=== PATIENT | female | born 1980 | race Caucasian/White ===

== ENCOUNTER 2022-02-07 12:53 | Inpatient (IN) ==
[2022-02-08] MEDS ORDERED: OXYTOCIN 30 UNITS/500 ML BAG IV PRN (09:13)
[2022-02-08] MEDS ORDERED: LIDOCAINE 1% LOCAL 20 ML VIAL INFIL PRN (09:13)
--- NOTE | 2022-02-08 09:20 | History & Physical Report ---
Date of Service February 08, 2022 Assessment & Plan (1) Elective induction of labor planned: Plan: 41 yo at 39.2 wks , here for IOL at term VSS Afebrile FHR reassuring, GBS neg Cervix favorable Plan to admit, monitor, labs, Oxytocin per protocol Epidural for pain as she desires Admission and Anticipated Discharge Date Admission Date: February 08, 2022 History of Present Illness Primary Care Provider: Jina Washington PA-C Patient is a 41 yo at 39.2 wks who was scheduled for IOL for 1) AMA 2) IVF , had preimplantation genetic testing and QNatal, both negative 3) Thalassemia minor 4) h/o Down syndrome, TOP at 16 wks No complaints, no ctxs, LOF/VB +FM Allergies Allergy/AdvReac Type Severity Reaction Status Date / Time No Known Allergies Allergy Unverified 02/08/22 08:18 Home Medications Medication Instructions Recorded Confirmed Type B12 1 tab PO DAILY 02/08/22 02/08/22 History Iron (ferrous sulfate) 1 tab PO DAILY 02/08/22 02/08/22 History Pepcid 1 tab PO DAILY 02/08/22 02/08/22 History 1 tab PO DAILY 02/08/22 02/08/22 History Patient History Medical History (Updated 02/08/22 @ 09:18 by Sarai Sanders MD) 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 [employer] History No h/o STD's, no h/o HSV/ Chlamydia/ GC Review of Systems as per Subjective / HPI Physical Exam Constitutional: well developed, well nourished and comfortable Gastrointestinal (Abdomen): normal bowel sounds, soft, nontender, no hepatosplenomegaly (Gravid, Andrzej 7-8) Genitourinary: normal external appearance OB Exam Abdomen: + vertex Manual OB Exam: + cervical dilation 3 cm, + cervical effacement 50% and + station -2 OB Exam Monitor Tracing: + external uterine monitor used and + category I Results & Data ([facility]) Vital Signs (Past 12 Hours) Vital Signs Pulse BP 02/08/22 08:05 114 H 119/74
[2022-02-08 09:59] LABS: Hematocrit (blood only) 28.5 % (34.1-44.9); Hemoglobin 9.3 g/dl (12.0-16.0); Mean Corpuscular Hemoglobin 21.6 pg (25.0-34.0); Mean Corpuscular Hgb Conc 32.6 g/dL (32.0-36.0); Mean Corpuscular Volume 66.1 fL (80.0-100.0); Mean Platelet Volume 10.7 fL (9.4-12.3); Platelet Count 321 K/uL (130-400); RDW Coefficient of Variation 15.8 % (11.5-14.5); Red Blood Count 4.31 M/uL (3.93-5.22); White Blood Count 11.36 K/ul (4.8-10.8)
[2022-02-08] MEDS: LACTATED RINGER'S 1,000 ML IV PRN ×3 (10:00→18:27)
[2022-02-08] MEDS: OXYTOCIN 30 UNITS/500 ML BAG IV PRN (10:06)
[2022-02-08] MEDS ORDERED: BUPIVACAINE 0.25% 30 ML VIAL ONE (12:36)
[2022-02-08] MEDS ORDERED: ePHEDrine sulfate 50 MG/ML AMP ONE (12:36)
[2022-02-08] MEDS ORDERED: fentaNYL citrate 100 MCG/2 ML VIAL ONE (12:36)
[2022-02-08] MEDS ORDERED: SODIUM CHLORIDE 0.9% INJ 10 ML VIAL ONE (12:36)
[2022-02-08] MEDS ORDERED: LIDOCAINE 2%/EPINEPHRINE 1:200,000 20 ML SDV ONE (12:36)
[2022-02-08] MEDS ORDERED: fentaNYL 2MCG/ML ROPIVACAINE 1.25MG/ML 100 ML BAG EPI ONE (12:38)
[2022-02-08] MEDS ORDERED: NALBUPHINE HCL INJ 10 MG/ML AMP IV PRN (13:07)
[2022-02-08] MEDS ORDERED: ONDANSETRON INJ 2 MG/ML 2 ML VIAL IV PRN (13:07)
[2022-02-08] MEDS ORDERED: NALOXONE HCL 1 MG in SODIUM CHLORIDE 0.9% 1000ML 1,000 ML IV PRN (13:07)
[2022-02-08] MEDS ORDERED: ePHEDrine sulfate 50 MG/ML AMP IV PRN (13:07)
[2022-02-08] MEDS ORDERED: diphenhydrAMINE 50 MG/ML VIAL IV PRN (13:07)
[2022-02-08] MEDS ORDERED: NALOXONE HCL 0.4 MG/1 ML VIAL/CARP IV PRN (13:07)
--- NOTE | 2022-02-08 13:07 | Anesthesiology Consultation ---
Date of Service February 08, 2022 Assessment & Plan Chart Review Chart Review: Patient NOT seen in Pre Admission Testing and Acceptable Risk for Labor Epidural Consults Requested none ASA ASA2 Proposed Anesthesia Anesthesia Type: Labor Epidural and CSE Risk / Benefits Reviewed With: PT / POA / Parent / Guardian, Accepts Plan and Informed Consent Obtained History Height/Weight Height: 5 ft 2.5 in Weight: 72.575 kg Allergies Allergy/AdvReac Type Severity Reaction Status Date / Time No Known Allergies Allergy Unverified 02/08/22 08:18 Medications Home Medications Medication Instructions Recorded Confirmed Last Taken B12 1 tab PO DAILY 02/08/22 02/08/22 Unknown Iron (ferrous sulfate) 1 tab PO DAILY 02/08/22 02/08/22 02/01/22 Pepcid 1 tab PO DAILY 02/08/22 02/08/22 02/08/22 07:30 1 tab PO DAILY 02/08/22 02/08/22 02/08/22 07:00 Active Medications Generic Name Dose Route Start Last Admin Trade Name Freq PRN Reason Stop Dose Admin Oxytocin 30 units in 500 mls @ 8 mls/hr 02/08/22 09:14 02/08/22 13:00 Pitocin IV 02/10/22 09:13 0.6 units/hr .Q24H PRN 10 mls/hr Labor Induction/Augmentation Titration Protocol 0.48 UNITS/HR NPO Date Last Intake of Fluids: 02/08/22 Time Last Intake of Fluids: 12:00 Date Last Intake of Solids: 02/08/22 Time Last Intake of Solids: 07:00 Past Medical History Medical History 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 Exercise / Class Metabolic Activity II 4-5 Yardwork/Stairs/Walk up hill Past Anesthesia History No Hx of Anesthesia Complications and No Family Hx of Anesthesia Complications History of PONV No Hx of PONV and No Hx of Motion Sickness Social History Smoking Status: Never smoker Hx Alcohol Use: No Hx Substance Use: No substance use type: does not use Review of Systems no chest pain or sob Physical Exam Vital Signs Last Vital Signs Temp 36.9 C 02/08/22 08:25 Pulse 91 H 02/08/22 12:01 Resp 18 02/08/22 08:25 BP 105/66 02/08/22 12:01 Pulse Ox 100 02/08/22 11:34 ENMT Mouth: no TMJ abnormality Thyromental Distance: > or= 3.5 Finger Breadths Mallampati Class: II Neck normal visual inspection Respiratory normal respiratory effort Auscultation: lungs clear to auscultation bilaterally Cardiovascular Rate/Rhythm: regular rate and regular rhythm Musculoskeletal Spine: normal cervical ROM Neurologic moves all extremities Psychiatric Orientation: alert and oriented x 3 Testing Laboratory Results 02/08/22 09:25
--- NOTE | 2022-02-08 16:33 | Obstetrical Progress Note ---
Date of Service February 08, 2022 Assessment & Plan Admission and Anticipated Discharge Date Admission Date: February 08, 2022 Subjective Late entry from 3:30 PM. The patient is reevaluated. She received epidural and comfortable now. Vital signs stable afebrile, heart rate category 1. Vaginal exam, cervix is 4 cm dilated, 60% effaced, head at -2 station, AROM, abundant amount of clear fluid was obtained, head is engaged. [place] showing contractions every 3 to 4 minutes, oxytocin is at 16 mIU/min. Continue to monitor closely. Results & Data ([facility]) Vital Signs (Past 12 Hours) Vital Signs Temp Pulse Resp BP Pulse Ox 02/08/22 08:25 36.9 C 114 H 18 119/74 02/08/22 16:28 100 02/08/22 16:28 80 02/08/22 16:23 100 02/08/22 16:23 82 02/08/22 16:18 100 02/08/22 16:18 84 02/08/22 16:18 82 02/08/22 16:18 110/62 02/08/22 16:13 100 02/08/22 16:13 82 02/08/22 16:08 100 02/08/22 16:08 88 02/08/22 15:45 18 02/08/22 15:45 36.8 C 18 02/08/22 16:03 100 02/08/22 16:03 93 H 02/08/22 16:02 86 02/08/22 16:02 117/68 02/08/22 15:58 100 02/08/22 15:58 94 H 02/08/22 15:53 99 02/08/22 15:53 87 02/08/22 15:49 85 02/08/22 15:49 109/67 02/08/22 15:48 100 02/08/22 15:48 87 02/08/22 15:43 99 02/08/22 15:43 96 H 02/08/22 15:38 100 02/08/22 15:38 96 H 02/08/22 15:33 100 02/08/22 15:33 102 H 02/08/22 15:33 97 H 02/08/22 15:33 112/62 02/08/22 15:28 100 02/08/22 15:28 109 H 02/08/22 15:24 91 H 02/08/22 15:24 93/55 L 02/08/22 15:23 99 02/08/22 15:23 82 02/08/22 15:19 82 02/08/22 15:19 88/56 L 02/08/22 15:18 99 02/08/22 15:18 86 02/08/22 15:13 99 02/08/22 15:13 88 02/08/22 15:08 100 02/08/22 15:08 96 H 02/08/22 15:03 100 02/08/22 15:03 92 H 02/08/22 15:02 93 H 02/08/22 15:02 111/68 02/08/22 14:58 100 02/08/22 14:58 88 02/08/22 14:53 100 02/08/22 14:53 101 H 02/08/22 14:48 99 02/08/22 14:48 94 H 02/08/22 14:47 93 H 02/08/22 14:47 102/61 02/08/22 14:43 100 02/08/22 14:43 96 H 02/08/22 14:38 100 02/08/22 14:38 98 H 02/08/22 14:33 99 02/08/22 14:33 93 H 02/08/22 14:33 93 H 02/08/22 14:33 109/63 02/08/22 14:28 99 02/08/22 14:28 95 H 02/08/22 14:23 99 02/08/22 14:23 91 H 02/08/22 14:18 100 02/08/22 14:18 96 H 02/08/22 14:18 104/66 02/08/22 14:03 16 02/08/22 14:03 16 02/08/22 14:13 99 02/08/22 14:13 91 H 02/08/22 14:08 100 02/08/22 14:08 92 H 02/08/22 14:03 100 02/08/22 14:03 90 02/08/22 14:03 112/67 02/08/22 13:58 100 02/08/22 13:58 93 H 02/08/22 13:53 99 02/08/22 13:53 92 H 02/08/22 13:50 88 02/08/22 13:50 110/71 02/08/22 13:48 99 02/08/22 13:48 89 02/08/22 13:40 36.8 C 02/08/22 13:45 16 02/08/22 13:45 16 02/08/22 13:43 100 02/08/22 13:43 94 H 02/08/22 13:38 99 02/08/22 13:38 95 H 02/08/22 13:26 18 02/08/22 13:26 36.8 C 18 02/08/22 13:33 100 02/08/22 13:33 93 H 02/08/22 13:28 99 02/08/22 13:28 89 02/08/22 13:27 210 H 02/08/22 13:27 96/55 L 02/08/22 13:23 100 02/08/22 13:23 100 H 02/08/22 13:22 91 H 02/08/22 13:22 92/53 L 02/08/22 13:18 100 02/08/22 13:18 97 H 02/08/22 13:13 100 02/08/22 13:13 103 H 02/08/22 12:01 91 H 02/08/22 12:01 105/66 02/08/22 11:34 100 02/08/22 11:34 99 H 02/08/22 10:53 100 H 02/08/22 10:53 106/70 02/08/22 09:40 96 H 02/08/22 09:40 110/67 02/08/22 08:05 114 H 119/74
--- NOTE | 2022-02-08 18:19 | Obstetrical Progress Note ---
Date of Service February 08, 2022 Assessment & Plan Admission and Anticipated Discharge Date Admission Date: February 08, 2022 Subjective The patient is reevaluated. She is comfortable. Vital signs stable afebrile, heart rate category 1. Vaginal exam, unchanged, cervix is 4 cm dilated, 60% effaced, head at -2 station, IUPC is placed, pitocin is at 20 miu/min Bed side US: Vertex, FHR 140's, EFW 3850 gr +/- 550 gr. Discussed the findings, adjust the dose of Pitocin per IUPC and change positions Continue to monitor closely Results & Data ([facility]) Vital Signs (Past 12 Hours) Vital Signs Temp Pulse Resp BP Pulse Ox 02/08/22 08:25 36.9 C 114 H 18 119/74 02/08/22 18:13 100 02/08/22 18:13 96 H 02/08/22 18:08 100 02/08/22 18:08 91 H 02/08/22 18:03 100 02/08/22 18:03 89 02/08/22 18:02 87 02/08/22 18:02 111/71 02/08/22 17:59 92 02/08/22 17:59 99 H 02/08/22 17:58 100 02/08/22 17:58 90 02/08/22 17:53 100 02/08/22 17:53 85 02/08/22 17:48 100 02/08/22 17:48 85 02/08/22 17:47 81 02/08/22 17:47 110/64 02/08/22 17:43 100 02/08/22 17:43 81 02/08/22 17:38 100 02/08/22 17:38 86 02/08/22 17:33 100 02/08/22 17:33 84 02/08/22 17:33 109/63 02/08/22 17:28 100 02/08/22 17:28 80 02/08/22 17:23 100 02/08/22 17:23 88 02/08/22 17:18 100 02/08/22 17:18 81 02/08/22 17:18 88 02/08/22 17:18 112/70 02/08/22 17:16 90 02/08/22 17:16 96 H 02/08/22 17:13 100 02/08/22 17:13 82 02/08/22 17:08 100 02/08/22 17:08 85 02/08/22 17:05 16 02/08/22 17:05 36.6 C 16 02/08/22 17:03 100 02/08/22 17:03 91 H 02/08/22 17:04 90 02/08/22 17:04 103/60 02/08/22 17:03 86 02/08/22 17:03 104/63 02/08/22 16:58 100 02/08/22 16:58 83 02/08/22 16:57 86 02/08/22 16:57 112/62 02/08/22 16:53 100 02/08/22 16:53 88 02/08/22 16:48 99 02/08/22 16:48 86 02/08/22 16:43 100 02/08/22 16:43 86 02/08/22 16:38 99 02/08/22 16:38 87 02/08/22 16:33 99 02/08/22 16:33 82 02/08/22 16:33 77 02/08/22 16:33 107/63 02/08/22 16:28 100 02/08/22 16:28 80 02/08/22 16:23 100 02/08/22 16:23 82 02/08/22 16:18 100 02/08/22 16:18 84 02/08/22 16:18 82 02/08/22 16:18 110/62 02/08/22 16:13 100 02/08/22 16:13 82 02/08/22 16:08 100 02/08/22 16:08 88 02/08/22 15:45 18 02/08/22 15:45 36.8 C 18 02/08/22 16:03 100 02/08/22 16:03 93 H 02/08/22 16:02 86 02/08/22 16:02 117/68 02/08/22 15:58 100 02/08/22 15:58 94 H 02/08/22 15:53 99 02/08/22 15:53 87 02/08/22 15:49 85 02/08/22 15:49 109/67 02/08/22 15:48 100 02/08/22 15:48 87 02/08/22 15:43 99 02/08/22 15:43 96 H 02/08/22 15:38 100 02/08/22 15:38 96 H 02/08/22 15:33 100 02/08/22 15:33 102 H 02/08/22 15:33 97 H 02/08/22 15:33 112/62 02/08/22 15:28 100 02/08/22 15:28 109 H 02/08/22 15:24 91 H 02/08/22 15:24 93/55 L 02/08/22 15:23 99 02/08/22 15:23 82 02/08/22 15:19 82 02/08/22 15:19 88/56 L 02/08/22 15:18 99 02/08/22 15:18 86 02/08/22 15:13 99 02/08/22 15:13 88 02/08/22 15:08 100 02/08/22 15:08 96 H 02/08/22 15:03 100 02/08/22 15:03 92 H 02/08/22 15:02 93 H 02/08/22 15:02 111/68 02/08/22 14:58 100 02/08/22 14:58 88 02/08/22 14:53 100 02/08/22 14:53 101 H 02/08/22 14:48 99 02/08/22 14:48 94 H 02/08/22 14:47 93 H 02/08/22 14:47 102/61 02/08/22 14:43 100 02/08/22 14:43 96 H 02/08/22 14:38 100 02/08/22 14:38 98 H 02/08/22 14:33 99 02/08/22 14:33 93 H 02/08/22 14:33 93 H 02/08/22 14:33 109/63 02/08/22 14:28 99 02/08/22 14:28 95 H 02/08/22 14:23 99 02/08/22 14:23 91 H 02/08/22 14:18 100 02/08/22 14:18 96 H 02/08/22 14:18 104/66 02/08/22 14:03 16 02/08/22 14:03 16 02/08/22 14:13 99 02/08/22 14:13 91 H 02/08/22 14:08 100 02/08/22 14:08 92 H 02/08/22 14:03 100 02/08/22 14:03 90 02/08/22 14:03 112/67 02/08/22 13:58 100 02/08/22 13:58 93 H 02/08/22 13:53 99 02/08/22 13:53 92 H 02/08/22 13:50 88 02/08/22 13:50 110/71 02/08/22 13:48 99 02/08/22 13:48 89 02/08/22 13:40 36.8 C 02/08/22 13:45 16 02/08/22 13:45 16 02/08/22 13:43 100 02/08/22 13:43 94 H 02/08/22 13:38 99 02/08/22 13:38 95 H 02/08/22 13:26 18 02/08/22 13:26 36.8 C 18 02/08/22 13:33 100 02/08/22 13:33 93 H 02/08/22 13:28 99 02/08/22 13:28 89 02/08/22 13:27 210 H 02/08/22 13:27 96/55 L 02/08/22 13:23 100 02/08/22 13:23 100 H 02/08/22 13:22 91 H 02/08/22 13:22 92/53 L 02/08/22 13:18 100 02/08/22 13:18 97 H 02/08/22 13:13 100 02/08/22 13:13 103 H 02/08/22 12:01 91 H 02/08/22 12:01 105/66 02/08/22 11:34 100 02/08/22 11:34 99 H 02/08/22 10:53 100 H 02/08/22 10:53 106/70 02/08/22 09:40 96 H 02/08/22 09:40 110/67 02/08/22 08:05 114 H 119/74
--- NOTE | 2022-02-08 22:26 | Obstetrical Progress Note ---
Date of Service February 08, 2022 Assessment & Plan Admission and Anticipated Discharge Date Admission Date: February 08, 2022 Subjective Patient is reevaluated. She started to feel contractions and has been pushing on the pain button. Vital signs stable afebrile, heart rate category 1, Pitocin has been at 30 mIU/min with IUPC in. Vaginal exam unchanged, cervix 4 cm, 70%, head at -2, coned shape Patient has been changing positions with peanut ball in between legs, flying cow girl position and high [place] position. Arrest of dilatation in active phase of labor, high presenting part suggesting CPT, recommended primary . We had long discussion with her and about the risks of trial of labor with protracted labor, intrauterine infection, uterine rupture, shoulder dystocia with risks to the . Patient understands C section is a major surgery, with risks including but not limited to bleeding , infection, injury to surrounding organs like bowels, bladder, ureters, adhesions, scarring, wound infection, blood cloths in legs/ lungs, longer recovery. All questions were answered. She wants to think about it and then decide. Results & Data ([facility]) Vital Signs (Past 12 Hours) Vital Signs Temp Pulse Resp BP Pulse Ox 02/08/22 22:18 100 02/08/22 22:18 102 H 02/08/22 22:18 124/72 02/08/22 22:13 100 02/08/22 22:13 109 H 02/08/22 22:08 99 02/08/22 22:08 109 H 02/08/22 22:03 100 02/08/22 22:03 105 H 02/08/22 22:03 124/72 02/08/22 21:58 100 02/08/22 21:58 85 02/08/22 21:53 100 02/08/22 21:53 82 02/08/22 21:48 100 02/08/22 21:48 78 02/08/22 21:47 81 02/08/22 21:47 101/59 L 02/08/22 21:43 100 02/08/22 21:43 91 H 02/08/22 21:38 99 02/08/22 21:38 90 02/08/22 21:30 18 02/08/22 21:30 18 02/08/22 21:33 100 02/08/22 21:33 87 02/08/22 21:33 89 02/08/22 21:33 120/66 02/08/22 21:28 100 02/08/22 21:28 90 02/08/22 21:00 18 02/08/22 21:00 36.4 C L 18 02/08/22 21:23 100 02/08/22 21:23 92 H 02/08/22 21:18 100 02/08/22 21:18 90 02/08/22 21:18 85 02/08/22 21:18 113/62 02/08/22 21:13 100 02/08/22 21:13 92 H 02/08/22 21:08 100 02/08/22 21:08 96 H 02/08/22 21:04 95 H 02/08/22 21:04 131/64 02/08/22 21:03 100 02/08/22 21:03 95 H 02/08/22 20:58 100 02/08/22 20:58 94 H 02/08/22 20:53 100 02/08/22 20:53 89 02/08/22 20:48 100 02/08/22 20:48 93 H 02/08/22 20:47 90 02/08/22 20:47 113/70 02/08/22 20:43 100 02/08/22 20:43 93 H 02/08/22 20:30 18 02/08/22 20:30 18 02/08/22 20:39 93 02/08/22 20:39 103 H 02/08/22 20:38 100 02/08/22 20:38 92 H 02/08/22 20:33 100 02/08/22 20:33 86 02/08/22 20:32 82 02/08/22 20:32 102/64 02/08/22 20:28 99 02/08/22 20:28 84 02/08/22 20:23 99 02/08/22 20:23 83 02/08/22 20:18 100 02/08/22 20:18 90 02/08/22 20:19 86 02/08/22 20:19 109/66 02/08/22 20:13 100 02/08/22 20:13 85 02/08/22 20:00 18 02/08/22 20:00 18 02/08/22 20:08 100 02/08/22 20:08 92 H 02/08/22 20:03 100 02/08/22 20:03 111 H 02/08/22 20:02 85 02/08/22 20:02 97/55 L 02/08/22 19:58 100 02/08/22 19:58 78 02/08/22 19:53 100 02/08/22 19:53 77 02/08/22 19:48 100 02/08/22 19:48 80 02/08/22 19:47 76 02/08/22 19:47 94/50 L 02/08/22 19:43 100 02/08/22 19:43 79 02/08/22 19:38 100 02/08/22 19:38 79 02/08/22 19:33 100 02/08/22 19:33 82 02/08/22 19:32 82 02/08/22 19:32 100/59 L 02/08/22 19:28 100 02/08/22 19:28 82 02/08/22 19:23 100 02/08/22 19:23 80 02/08/22 19:18 99 02/08/22 19:18 83 02/08/22 19:18 80 02/08/22 19:18 103/56 L 02/08/22 19:10 18 02/08/22 19:10 36.6 C 18 02/08/22 19:13 100 02/08/22 19:14 92 02/08/22 19:13 99 H 02/08/22 19:14 92 H 02/08/22 19:08 100 02/08/22 19:08 98 H 02/08/22 19:03 99 02/08/22 19:03 90 02/08/22 19:02 90 02/08/22 19:02 113/69 02/08/22 18:58 100 02/08/22 18:58 94 H 02/08/22 18:53 100 02/08/22 18:53 85 02/08/22 18:48 100 02/08/22 18:48 83 02/08/22 18:48 110/67 02/08/22 18:43 100 02/08/22 18:43 93 H 02/08/22 18:38 100 02/08/22 18:38 93 H 02/08/22 18:33 100 02/08/22 18:33 86 02/08/22 18:33 111/68 02/08/22 18:28 100 02/08/22 18:28 87 02/08/22 18:23 100 02/08/22 18:23 90 02/08/22 18:20 18 02/08/22 18:20 36.5 C 18 02/08/22 18:18 95 02/08/22 18:18 89 02/08/22 18:18 93 02/08/22 18:17 104 H 02/08/22 18:18 86 02/08/22 18:17 130/64 02/08/22 18:13 100 02/08/22 18:13 96 H 02/08/22 18:08 100 02/08/22 18:08 91 H 02/08/22 18:03 100 02/08/22 18:03 89 02/08/22 18:02 87 02/08/22 18:02 111/71 02/08/22 17:59 92 02/08/22 17:59 99 H 02/08/22 17:58 100 02/08/22 17:58 90 02/08/22 17:53 100 02/08/22 17:53 85 02/08/22 17:48 100 02/08/22 17:48 85 02/08/22 17:47 81 02/08/22 17:47 110/64 02/08/22 17:43 100 02/08/22 17:43 81 02/08/22 17:38 100 02/08/22 17:38 86 02/08/22 17:33 100 02/08/22 17:33 84 02/08/22 17:33 109/63 02/08/22 17:28 100 02/08/22 17:28 80 02/08/22 17:23 100 02/08/22 17:23 88 02/08/22 17:18 100 02/08/22 17:18 81 02/08/22 17:18 88 02/08/22 17:18 112/70 02/08/22 17:16 90 02/08/22 17:16 96 H 02/08/22 17:13 100 02/08/22 17:13 82 02/08/22 17:08 100 02/08/22 17:08 85 02/08/22 17:05 16 02/08/22 17:05 36.6 C 16 02/08/22 17:03 100 02/08/22 17:03 91 H 02/08/22 17:04 90 02/08/22 17:04 103/60 02/08/22 17:03 86 02/08/22 17:03 104/63 02/08/22 16:58 100 02/08/22 16:58 83 02/08/22 16:57 86 02/08/22 16:57 112/62 02/08/22 16:53 100 02/08/22 16:53 88 02/08/22 16:48 99 02/08/22 16:48 86 02/08/22 16:43 100 02/08/22 16:43 86 02/08/22 16:38 99 02/08/22 16:38 87 02/08/22 16:33 99 02/08/22 16:33 82 02/08/22 16:33 77 02/08/22 16:33 107/63 02/08/22 16:28 100 02/08/22 16:28 80 02/08/22 16:23 100 02/08/22 16:23 82 02/08/22 16:18 100 02/08/22 16:18 84 02/08/22 16:18 82 02/08/22 16:18 110/62 02/08/22 16:13 100 02/08/22 16:13 82 02/08/22 16:08 100 02/08/22 16:08 88 02/08/22 15:45 18 02/08/22 15:45 36.8 C 18 02/08/22 16:03 100 02/08/22 16:03 93 H 02/08/22 16:02 86 02/08/22 16:02 117/68 02/08/22 15:58 100 02/08/22 15:58 94 H 02/08/22 15:53 99 02/08/22 15:53 87 02/08/22 15:49 85 02/08/22 15:49 109/67 02/08/22 15:48 100 02/08/22 15:48 87 02/08/22 15:43 99 02/08/22 15:43 96 H 02/08/22 15:38 100 02/08/22 15:38 96 H 02/08/22 15:33 100 02/08/22 15:33 102 H 02/08/22 15:33 97 H 02/08/22 15:33 112/62 02/08/22 15:28 100 02/08/22 15:28 109 H 02/08/22 15:24 91 H 02/08/22 15:24 93/55 L 02/08/22 15:23 99 02/08/22 15:23 82 02/08/22 15:19 82 02/08/22 15:19 88/56 L 02/08/22 15:18 99 02/08/22 15:18 86 02/08/22 15:13 99 02/08/22 15:13 88 02/08/22 15:08 100 02/08/22 15:08 96 H 02/08/22 15:03 100 02/08/22 15:03 92 H 02/08/22 15:02 93 H 02/08/22 15:02 111/68 02/08/22 14:58 100 02/08/22 14:58 88 02/08/22 14:53 100 02/08/22 14:53 101 H 02/08/22 14:48 99 02/08/22 14:48 94 H 02/08/22 14:47 93 H 02/08/22 14:47 102/61 02/08/22 14:43 100 02/08/22 14:43 96 H 02/08/22 14:38 100 02/08/22 14:38 98 H 02/08/22 14:33 99 02/08/22 14:33 93 H 02/08/22 14:33 93 H 02/08/22 14:33 109/63 02/08/22 14:28 99 02/08/22 14:28 95 H 02/08/22 14:23 99 02/08/22 14:23 91 H 02/08/22 14:18 100 02/08/22 14:18 96 H 02/08/22 14:18 104/66 02/08/22 14:03 16 02/08/22 14:03 16 02/08/22 14:13 99 02/08/22 14:13 91 H 02/08/22 14:08 100 02/08/22 14:08 92 H 02/08/22 14:03 100 02/08/22 14:03 90 02/08/22 14:03 112/67 02/08/22 13:58 100 02/08/22 13:58 93 H 02/08/22 13:53 99 02/08/22 13:53 92 H 02/08/22 13:50 88 02/08/22 13:50 110/71 02/08/22 13:48 99 02/08/22 13:48 89 02/08/22 13:40 36.8 C 02/08/22 13:45 16 02/08/22 13:45 16 02/08/22 13:43 100 02/08/22 13:43 94 H 02/08/22 13:38 99 02/08/22 13:38 95 H 02/08/22 13:26 18 02/08/22 13:26 36.8 C 18 02/08/22 13:33 100 02/08/22 13:33 93 H 02/08/22 13:28 99 02/08/22 13:28 89 02/08/22 13:27 210 H 02/08/22 13:27 96/55 L 02/08/22 13:23 100 02/08/22 13:23 100 H 02/08/22 13:22 91 H 02/08/22 13:22 92/53 L 02/08/22 13:18 100 02/08/22 13:18 97 H 02/08/22 13:13 100 02/08/22 13:13 103 H 02/08/22 12:01 91 H 02/08/22 12:01 105/66 02/08/22 11:34 100 02/08/22 11:34 99 H 02/08/22 10:53 100 H 02/08/22 10:53 106/70
[2022-02-08] MEDS: fentaNYL 2MCG/ML ROPIVACAINE 1.25MG/ML 100 ML BAG EPI PRN (22:27)
[2022-02-09] MEDS: LACTATED RINGER'S 1,000 ML IV PRN ×4 (00:08→19:25)
--- NOTE | 2022-02-09 00:12 | Obstetrical Progress Note ---
Date of Service February 09, 2022 Assessment & Plan Admission and Anticipated Discharge Date Admission Date: February 08, 2022 Subjective Patient is reevaluated. She decided not to have Csection and continue for Trial of labor. She desired to sleep. She is comfortable and has no complaints. Pitocin was stopped for an hour and restarted at 2 miu/min VSS Afebrile FHR categ I Continue to monitor closely, increase pitocin as needed, Results & Data ([facility]) Vital Signs (Past 12 Hours) Vital Signs Temp Pulse Resp BP Pulse Ox 02/09/22 00:08 100 H 99 02/09/22 00:03 99 02/09/22 00:03 86 02/09/22 00:03 85 108/62 02/08/22 23:58 99 02/08/22 23:58 88 02/08/22 23:53 99 02/08/22 23:53 86 02/08/22 23:30 18 02/08/22 23:30 18 02/08/22 23:48 100 02/08/22 23:48 89 02/08/22 23:48 116/60 02/08/22 23:43 100 02/08/22 23:43 93 H 02/08/22 23:38 100 02/08/22 23:38 98 H 02/08/22 23:33 100 02/08/22 23:33 99 H 02/08/22 23:32 85 02/08/22 23:32 108/62 02/08/22 23:28 100 02/08/22 23:28 89 02/08/22 23:23 100 02/08/22 23:23 94 H 02/08/22 23:18 100 02/08/22 23:18 112 H 02/08/22 23:18 96 H 02/08/22 23:18 115/63 02/08/22 23:13 100 02/08/22 23:13 91 H 02/08/22 23:00 18 02/08/22 23:00 36.6 C 18 02/08/22 23:08 100 02/08/22 23:08 99 H 02/08/22 23:03 100 02/08/22 23:03 89 02/08/22 23:02 90 02/08/22 23:02 117/56 L 11/29/22 22:30 18 02/08/22 22:30 18 02/08/22 22:58 100 02/08/22 22:58 91 H 02/08/22 22:53 100 02/08/22 22:53 86 02/08/22 22:49 90 02/08/22 22:49 103/58 L 02/08/22 22:48 100 02/08/22 22:48 90 02/08/22 22:43 97 02/08/22 22:43 88 02/08/22 22:00 18 02/08/22 22:00 18 02/08/22 22:38 100 02/08/22 22:38 91 H 02/08/22 22:33 100 02/08/22 22:33 94 H 02/08/22 22:33 90 02/08/22 22:33 119/62 02/08/22 22:28 99 02/08/22 22:28 98 H 02/08/22 22:23 100 02/08/22 22:23 104 H 02/08/22 22:18 100 02/08/22 22:18 102 H 02/08/22 22:18 124/72 02/08/22 22:13 100 02/08/22 22:13 109 H 02/08/22 22:08 99 02/08/22 22:08 109 H 02/08/22 22:03 100 02/08/22 22:03 105 H 02/08/22 22:03 124/72 02/08/22 21:58 100 02/08/22 21:58 85 02/08/22 21:53 100 02/08/22 21:53 82 02/08/22 21:48 100 02/08/22 21:48 78 02/08/22 21:47 81 02/08/22 21:47 101/59 L 02/08/22 21:43 100 02/08/22 21:43 91 H 02/08/22 21:38 99 02/08/22 21:38 90 02/08/22 21:30 18 02/08/22 21:30 18 02/08/22 21:33 100 02/08/22 21:33 87 02/08/22 21:33 89 02/08/22 21:33 120/66 02/08/22 21:28 100 02/08/22 21:28 90 02/08/22 21:00 18 02/08/22 21:00 36.4 C L 18 02/08/22 21:23 100 02/08/22 21:23 92 H 02/08/22 21:18 100 02/08/22 21:18 90 02/08/22 21:18 85 02/08/22 21:18 113/62 02/08/22 21:13 100 02/08/22 21:13 92 H 02/08/22 21:08 100 02/08/22 21:08 96 H 02/08/22 21:04 95 H 02/08/22 21:04 131/64 02/08/22 21:03 100 02/08/22 21:03 95 H 02/08/22 20:58 100 02/08/22 20:58 94 H 02/08/22 20:53 100 02/08/22 20:53 89 02/08/22 20:48 100 02/08/22 20:48 93 H 02/08/22 20:47 90 02/08/22 20:47 113/70 02/08/22 20:43 100 02/08/22 20:43 93 H 02/08/22 20:30 18 02/08/22 20:30 18 02/08/22 20:39 93 02/08/22 20:39 103 H 02/08/22 20:38 100 02/08/22 20:38 92 H 02/08/22 20:33 100 02/08/22 20:33 86 02/08/22 20:32 82 02/08/22 20:32 102/64 02/08/22 20:28 99 02/08/22 20:28 84 02/08/22 20:23 99 02/08/22 20:23 83 02/08/22 20:18 100 02/08/22 20:18 90 02/08/22 20:19 86 02/08/22 20:19 109/66 02/08/22 20:13 100 02/08/22 20:13 85 02/08/22 20:00 18 02/08/22 20:00 18 02/08/22 20:08 100 02/08/22 20:08 92 H 02/08/22 20:03 100 02/08/22 20:03 111 H 02/08/22 20:02 85 02/08/22 20:02 97/55 L 02/08/22 19:58 100 02/08/22 19:58 78 02/08/22 19:53 100 02/08/22 19:53 77 02/08/22 19:48 100 02/08/22 19:48 80 02/08/22 19:47 76 02/08/22 19:47 94/50 L 02/08/22 19:43 100 02/08/22 19:43 79 02/08/22 19:38 100 02/08/22 19:38 79 02/08/22 19:33 100 02/08/22 19:33 82 02/08/22 19:32 82 02/08/22 19:32 100/59 L 02/08/22 19:28 100 02/08/22 19:28 82 02/08/22 19:23 100 02/08/22 19:23 80 02/08/22 19:18 99 02/08/22 19:18 83 02/08/22 19:18 80 02/08/22 19:18 103/56 L 02/08/22 19:10 18 02/08/22 19:10 36.6 C 18 02/08/22 19:13 100 02/08/22 19:14 92 02/08/22 19:13 99 H 02/08/22 19:14 92 H 02/08/22 19:08 100 02/08/22 19:08 98 H 02/08/22 19:03 99 02/08/22 19:03 90 02/08/22 19:02 90 02/08/22 19:02 113/69 02/08/22 18:58 100 02/08/22 18:58 94 H 02/08/22 18:53 100 02/08/22 18:53 85 02/08/22 18:48 100 02/08/22 18:48 83 02/08/22 18:48 110/67 02/08/22 18:43 100 02/08/22 18:43 93 H 02/08/22 18:38 100 02/08/22 18:38 93 H 02/08/22 18:33 100 02/08/22 18:33 86 02/08/22 18:33 111/68 02/08/22 18:28 100 02/08/22 18:28 87 02/08/22 18:23 100 02/08/22 18:23 90 02/08/22 18:20 18 02/08/22 18:20 36.5 C 18 02/08/22 18:18 95 02/08/22 18:18 89 02/08/22 18:18 93 02/08/22 18:17 104 H 02/08/22 18:18 86 02/08/22 18:17 130/64 02/08/22 18:13 100 02/08/22 18:13 96 H 02/08/22 18:08 100 02/08/22 18:08 91 H 02/08/22 18:03 100 02/08/22 18:03 89 02/08/22 18:02 87 02/08/22 18:02 111/71 02/08/22 17:59 92 02/08/22 17:59 99 H 02/08/22 17:58 100 02/08/22 17:58 90 02/08/22 17:53 100 02/08/22 17:53 85 02/08/22 17:48 100 02/08/22 17:48 85 02/08/22 17:47 81 02/08/22 17:47 110/64 02/08/22 17:43 100 02/08/22 17:43 81 02/08/22 17:38 100 02/08/22 17:38 86 02/08/22 17:33 100 02/08/22 17:33 84 02/08/22 17:33 109/63 02/08/22 17:28 100 02/08/22 17:28 80 02/08/22 17:23 100 02/08/22 17:23 88 02/08/22 17:18 100 02/08/22 17:18 81 02/08/22 17:18 88 02/08/22 17:18 112/70 02/08/22 17:16 90 02/08/22 17:16 96 H 02/08/22 17:13 100 02/08/22 17:13 82 02/08/22 17:08 100 02/08/22 17:08 85 02/08/22 17:05 16 02/08/22 17:05 36.6 C 16 02/08/22 17:03 100 02/08/22 17:03 91 H 02/08/22 17:04 90 02/08/22 17:04 103/60 02/08/22 17:03 86 02/08/22 17:03 104/63 02/08/22 16:58 100 02/08/22 16:58 83 02/08/22 16:57 86 02/08/22 16:57 112/62 02/08/22 16:53 100 02/08/22 16:53 88 02/08/22 16:48 99 02/08/22 16:48 86 02/08/22 16:43 100 02/08/22 16:43 86 02/08/22 16:38 99 02/08/22 16:38 87 02/08/22 16:33 99 02/08/22 16:33 82 02/08/22 16:33 77 02/08/22 16:33 107/63 02/08/22 16:28 100 02/08/22 16:28 80 02/08/22 16:23 100 02/08/22 16:23 82 02/08/22 16:18 100 02/08/22 16:18 84 02/08/22 16:18 82 02/08/22 16:18 110/62 02/08/22 16:13 100 02/08/22 16:13 82 02/08/22 16:08 100 02/08/22 16:08 88 02/08/22 15:45 18 02/08/22 15:45 36.8 C 18 02/08/22 16:03 100 02/08/22 16:03 93 H 02/08/22 16:02 86 02/08/22 16:02 117/68 02/08/22 15:58 100 02/08/22 15:58 94 H 02/08/22 15:53 99 02/08/22 15:53 87 02/08/22 15:49 85 02/08/22 15:49 109/67 02/08/22 15:48 100 02/08/22 15:48 87 02/08/22 15:43 99 02/08/22 15:43 96 H 02/08/22 15:38 100 02/08/22 15:38 96 H 02/08/22 15:33 100 02/08/22 15:33 102 H 02/08/22 15:33 97 H 02/08/22 15:33 112/62 02/08/22 15:28 100 02/08/22 15:28 109 H 02/08/22 15:24 91 H 02/08/22 15:24 93/55 L 02/08/22 15:23 99 02/08/22 15:23 82 02/08/22 15:19 82 02/08/22 15:19 88/56 L 02/08/22 15:18 99 02/08/22 15:18 86 02/08/22 15:13 99 02/08/22 15:13 88 02/08/22 15:08 100 02/08/22 15:08 96 H 02/08/22 15:03 100 02/08/22 15:03 92 H 02/08/22 15:02 93 H 02/08/22 15:02 111/68 02/08/22 14:58 100 02/08/22 14:58 88 02/08/22 14:53 100 02/08/22 14:53 101 H 02/08/22 14:48 99 02/08/22 14:48 94 H 02/08/22 14:47 93 H 02/08/22 14:47 102/61 02/08/22 14:43 100 02/08/22 14:43 96 H 02/08/22 14:38 100 02/08/22 14:38 98 H 02/08/22 14:33 99 02/08/22 14:33 93 H 02/08/22 14:33 93 H 02/08/22 14:33 109/63 02/08/22 14:28 99 02/08/22 14:28 95 H 02/08/22 14:23 99 02/08/22 14:23 91 H 02/08/22 14:18 100 02/08/22 14:18 96 H 02/08/22 14:18 104/66 02/08/22 14:03 16 02/08/22 14:03 16 02/08/22 14:13 99 02/08/22 14:13 91 H 02/08/22 14:08 100 02/08/22 14:08 92 H 02/08/22 14:03 100 02/08/22 14:03 90 02/08/22 14:03 112/67 02/08/22 13:58 100 02/08/22 13:58 93 H 02/08/22 13:53 99 02/08/22 13:53 92 H 02/08/22 13:50 88 02/08/22 13:50 110/71 02/08/22 13:48 99 02/08/22 13:48 89 02/08/22 13:40 36.8 C 02/08/22 13:45 16 02/08/22 13:45 16 02/08/22 13:43 100 02/08/22 13:43 94 H 02/08/22 13:38 99 02/08/22 13:38 95 H 02/08/22 13:26 18 02/08/22 13:26 36.8 C 18 02/08/22 13:33 100 02/08/22 13:33 93 H 02/08/22 13:28 99 02/08/22 13:28 89 02/08/22 13:27 210 H 02/08/22 13:27 96/55 L 02/08/22 13:23 100 02/08/22 13:23 100 H 02/08/22 13:22 91 H 02/08/22 13:22 92/53 L 02/08/22 13:18 100 02/08/22 13:18 97 H 02/08/22 13:13 100 02/08/22 13:13 103 H
[2022-02-09] MEDS ORDERED: NURSING L&D Epidural Breakthrough Pain Update ONE ×2 (03:40→05:43)
[2022-02-09] MEDS: fentaNYL 2MCG/ML ROPIVACAINE 1.25MG/ML 100 ML BAG EPI PRN ×2 (05:40→12:02)
[2022-02-09] MEDS ORDERED: CITRIC ACID/SODIUM CITRATE 15 ML UDC PO SCH (06:00)
[2022-02-09] MEDS ORDERED: ceFAZolin 2000MG 2,000 MG/15 ML SYR IV SCH (06:00)
[2022-02-09] MEDS ORDERED: BUPIVACAINE 0.25% 30 ML VIAL ONE (07:00)
[2022-02-09] MEDS ORDERED: SODIUM CHLORIDE 0.9% INJ 10 ML VIAL ONE (07:00)
[2022-02-09] MEDS ORDERED: SODIUM CHLORIDE 0.9% 250 ML IV PRN (08:28)
[2022-02-09] MEDS ORDERED: OXYTOCIN 30 UNITS/500 ML BAG IV PRN (09:37)
--- NOTE | 2022-02-09 09:37 | Labor Progress Brief Note ---
Date of Service February 09, 2022 Assessment & Plan Admission and Anticipated Discharge Date Admission Date: February 08, 2022 Physical Exam Genitourinary: Manual OB Exam: + cervical dilation 6 cm, + cervical effacement 100% and + station + 1 OB Exam Monitor Tracing: + external FHT monitor used, + external uterine monitor used, + category I and + normal FHT variability Results & Data ([facility]) Vital Signs (Past 12 Hours) Vital Signs Temp Pulse Resp BP Pulse Ox 02/09/22 09:33 103 H 100 02/09/22 09:31 37.0 C 125 H 17 113/65 02/09/22 09:28 88 100 02/09/22 09:23 90 100 02/09/22 09:18 100 02/09/22 09:18 86 02/09/22 09:18 93 H 111/63 02/09/22 09:13 95 H 100 02/09/22 09:08 90 100 02/09/22 09:03 84 100 02/09/22 09:02 95 H 119/73 02/09/22 08:58 86 100 02/09/22 08:57 82 105/65 02/09/22 08:53 114 H 100 02/09/22 08:48 112 H 100 02/09/22 08:47 101 H 109/68 02/09/22 08:43 102 H 100 02/09/22 08:38 95 H 100 02/09/22 08:33 109 H 100 02/09/22 08:32 103 H 117/75 02/09/22 08:28 96 H 100 02/09/22 08:23 92 H 100 02/09/22 08:18 100 02/09/22 08:18 106 H 02/09/22 08:18 100 H 117/57 L 02/09/22 08:13 107 H 100 02/09/22 08:08 95 H 100 02/09/22 08:03 95 H 100 02/09/22 08:02 88 110/68 02/09/22 07:58 90 100 02/09/22 07:53 103 H 100 02/09/22 07:48 116 H 100 02/09/22 07:45 106 H 98/55 L 02/09/22 07:43 99 H 100 02/09/22 07:40 100 H 97/52 L 02/09/22 07:38 91 H 100 02/09/22 07:36 88 95/54 L 02/09/22 07:33 87 100 02/09/22 07:31 95 H 98/56 L 02/09/22 07:28 97 H 100 02/09/22 07:26 90 90 02/09/22 07:25 104 H 91/50 L 02/09/22 07:23 99 H 100 02/09/22 07:21 105 H 101/53 L 02/09/22 07:18 95 H 100 02/09/22 07:15 107 H 100/57 L 02/09/22 07:13 97 H 93 02/09/22 07:11 94 H 108/57 L 02/09/22 07:08 113 H 100 02/09/22 07:00 18 02/09/22 07:00 18 02/09/22 07:03 98 H 112/63 100 02/09/22 06:58 107 H 100 02/09/22 06:53 84 100 02/09/22 06:48 80 100 02/09/22 06:47 80 95/52 L 02/09/22 06:43 81 100 02/09/22 06:38 85 100 02/09/22 06:33 100 02/09/22 06:33 88 02/09/22 06:33 91 H 93/54 L 02/09/22 06:30 20 02/09/22 06:30 20 02/09/22 06:28 98 H 100 02/09/22 06:23 95 H 100 02/09/22 06:18 102 H 100 02/09/22 06:17 100 H 104/65 02/09/22 06:13 98 H 100 02/09/22 06:08 91 H 100 02/09/22 06:00 20 02/09/22 06:00 20 02/09/22 06:03 96 H 100 02/09/22 06:02 92 H 111/68 02/09/22 05:58 90 100 02/09/22 05:53 100 H 100 02/09/22 05:30 20 02/09/22 05:30 20 02/09/22 05:48 97 H 100 02/09/22 05:43 103 H 100 02/09/22 05:38 92 H 100 02/09/22 05:33 108 H 100 02/09/22 05:28 87 100 02/09/22 05:23 105 H 100 02/09/22 05:18 99 H 100 02/09/22 05:17 96 H 103/68 02/09/22 05:13 91 H 99 02/09/22 05:07 36.7 C 02/09/22 05:08 84 100 02/09/22 05:03 99 02/09/22 05:03 88 02/09/22 05:03 85 103/65 02/09/22 05:00 16 02/09/22 05:00 16 02/09/22 04:58 91 H 99 02/09/22 04:53 89 98 02/09/22 04:48 89 98 02/09/22 04:47 87 109/62 02/09/22 04:43 90 99 02/09/22 04:38 89 98 02/09/22 04:33 93 H 99 02/09/22 04:32 90 102/60 02/09/22 04:30 16 02/09/22 04:30 16 02/09/22 04:28 85 98 02/09/22 04:23 80 99 02/09/22 04:18 92 H 97 02/09/22 04:17 78 101/60 02/09/22 04:13 91 H 97 02/09/22 04:08 80 97 02/09/22 04:03 85 100/60 100 02/09/22 03:58 86 99 02/09/22 03:53 85 99 02/09/22 03:48 99 02/09/22 03:48 84 02/09/22 03:48 85 111/63 02/09/22 03:43 93 H 99 02/09/22 03:38 93 H 99 02/09/22 03:26 18 02/09/22 03:26 36.6 C 18 02/09/22 03:33 97 H 114/65 100 02/09/22 03:28 106 H 100 02/09/22 03:23 105 H 100 02/09/22 03:00 16 02/09/22 03:00 16 02/09/22 03:18 113 H 100 02/09/22 03:17 106 H 88/54 L 02/09/22 03:13 106 H 100 02/09/22 03:08 82 100 02/09/22 03:03 87 100 02/09/22 03:02 82 90/52 L 02/09/22 02:58 82 99 02/09/22 02:53 80 100 02/09/22 02:48 99 02/09/22 02:48 80 02/09/22 02:48 76 86/51 L 02/09/22 02:43 83 99 02/09/22 02:38 75 98 02/09/22 02:33 78 88/52 L 99 02/09/22 02:30 16 02/09/22 02:30 16 02/09/22 02:28 73 99 02/09/22 02:23 78 99 02/09/22 02:18 78 87/51 L 99 02/09/22 02:13 78 99 02/09/22 02:08 81 99 02/09/22 02:00 16 02/09/22 02:00 16 02/09/22 02:03 78 100 02/09/22 02:02 86 95/53 L 02/09/22 01:58 82 99 02/09/22 01:53 83 100 02/09/22 01:48 88 99 02/09/22 01:47 80 94/50 L 02/09/22 01:43 83 99 02/09/22 01:38 81 100 02/09/22 01:33 93 H 106/52 L 99 02/09/22 01:30 16 02/09/22 01:30 16 02/09/22 01:28 82 98 02/09/22 01:23 88 98 02/09/22 01:18 99 02/09/22 01:18 86 02/09/22 01:18 81 100/65 02/09/22 01:13 90 98 02/09/22 01:10 36.8 C 02/09/22 01:08 84 99 02/09/22 01:00 18 02/09/22 01:00 18 02/09/22 01:03 86 99 02/09/22 01:02 85 103/58 L 02/09/22 00:58 91 H 98 02/09/22 00:53 87 98 02/09/22 00:48 86 98 02/09/22 00:49 82 99/59 L 02/09/22 00:43 83 98 02/09/22 00:38 86 98 02/09/22 00:30 18 02/09/22 00:30 18 02/09/22 00:33 87 98 02/09/22 00:32 85 109/57 L 02/09/22 00:28 86 98 02/09/22 00:23 91 H 99 02/09/22 00:18 85 98 02/09/22 00:17 93 H 116/65 02/09/22 00:13 86 99 02/09/22 00:00 18 02/09/22 00:00 18 02/09/22 00:08 100 H 99 02/09/22 00:03 99 02/09/22 00:03 86 02/09/22 00:03 85 108/62 02/08/22 23:58 99 02/08/22 23:58 88 02/08/22 23:53 99 02/08/22 23:53 86 02/08/22 23:30 18 02/08/22 23:30 18 02/08/22 23:48 100 02/08/22 23:48 89 02/08/22 23:48 116/60 02/08/22 23:43 100 02/08/22 23:43 93 H 02/08/22 23:38 100 02/08/22 23:38 98 H 02/08/22 23:33 100 02/08/22 23:33 99 H 02/08/22 23:32 85 02/08/22 23:32 108/62 02/08/22 23:28 100 02/08/22 23:28 89 02/08/22 23:23 100 02/08/22 23:23 94 H 02/08/22 23:18 100 02/08/22 23:18 112 H 02/08/22 23:18 96 H 02/08/22 23:18 115/63 02/08/22 23:13 100 02/08/22 23:13 91 H 02/08/22 23:00 18 02/08/22 23:00 36.6 C 18 02/08/22 23:08 100 02/08/22 23:08 99 H 02/08/22 23:03 100 02/08/22 23:03 89 02/08/22 23:02 90 02/08/22 23:02 117/56 L 02/08/22 22:30 18 02/08/22 22:30 18 02/08/22 22:58 100 02/08/22 22:58 91 H 02/08/22 22:53 100 02/08/22 22:53 86 02/08/22 22:49 90 02/08/22 22:49 103/58 L 02/08/22 22:48 100 02/08/22 22:48 90 02/08/22 22:43 97 02/08/22 22:43 88 02/08/22 22:00 18 02/08/22 22:00 18 02/08/22 22:38 100 02/08/22 22:38 91 H 02/08/22 22:33 100 02/08/22 22:33 94 H 02/08/22 22:33 90 02/08/22 22:33 119/62 02/08/22 22:28 99 02/08/22 22:28 98 H 02/08/22 22:23 100 02/08/22 22:23 104 H 02/08/22 22:18 100 02/08/22 22:18 102 H 02/08/22 22:18 124/72 02/08/22 22:13 100 02/08/22 22:13 109 H 02/08/22 22:08 99 02/08/22 22:08 109 H 02/08/22 22:03 100 02/08/22 22:03 105 H 02/08/22 22:03 124/72 02/08/22 21:58 100 02/08/22 21:58 85 02/08/22 21:53 100 02/08/22 21:53 82 02/08/22 21:48 100 02/08/22 21:48 78 02/08/22 21:47 81 02/08/22 21:47 101/59 L 02/08/22 21:43 100 02/08/22 21:43 91 H 02/08/22 21:38 99 02/08/22 21:38 90
--- NOTE | 2022-02-09 11:54 | Labor Progress Brief Note ---
Date of Service February 09, 2022 Assessment & Plan Admission and Anticipated Discharge Date Admission Date: February 08, 2022 Physical Exam Genitourinary: Manual OB Exam: + cervical dilation 8 cm, + cervical effacement 100% and + station + 1 OB Exam Monitor Tracing: + external FHT monitor used, + external uterine monitor used, + category I and + normal FHT variability Results & Data ([facility]) Vital Signs (Past 12 Hours) Vital Signs Temp Pulse Resp BP Pulse Ox 02/09/22 11:48 100 02/09/22 11:48 92 H 02/09/22 11:48 85 97/59 L 02/09/22 11:43 91 H 100 02/09/22 11:38 99 H 100 02/09/22 11:33 101 H 100 02/09/22 11:31 89 105/60 02/09/22 11:28 93 H 99 02/09/22 11:23 105 H 100 02/09/22 11:18 81 100 02/09/22 11:17 94 H 109/66 02/09/22 11:13 94 H 100 02/09/22 11:08 94 H 100 02/09/22 11:03 81 100 02/09/22 11:02 90 111/60 02/09/22 10:58 95 H 100 02/09/22 10:53 96 H 98 02/09/22 10:48 97 H 100 02/09/22 10:47 101 H 91/53 L 02/09/22 10:43 92 H 100 02/09/22 10:38 88 100 02/09/22 10:33 84 99 02/09/22 10:31 78 87/49 L 02/09/22 10:28 83 99 02/09/22 10:23 87 98 02/09/22 10:18 83 100 02/09/22 10:17 82 95/53 L 02/09/22 10:13 82 100 02/09/22 10:08 86 100 02/09/22 10:03 93 H 100 02/09/22 10:01 87 101/54 L 02/09/22 09:58 89 100 02/09/22 09:53 91 H 100 02/09/22 09:48 88 100 02/09/22 09:47 87 86/53 L 02/09/22 09:43 88 100 02/09/22 09:38 85 100 02/09/22 09:33 103 H 100 02/09/22 09:31 37.0 C 125 H 17 113/65 02/09/22 09:28 88 100 02/09/22 09:23 90 100 02/09/22 09:18 100 02/09/22 09:18 86 02/09/22 09:18 93 H 111/63 02/09/22 09:13 95 H 100 02/09/22 09:08 90 100 02/09/22 09:03 84 100 02/09/22 09:02 95 H 119/73 02/09/22 08:58 86 100 02/09/22 08:57 82 105/65 02/09/22 08:53 114 H 100 02/09/22 08:48 112 H 100 02/09/22 08:47 101 H 109/68 02/09/22 08:43 102 H 100 02/09/22 08:38 95 H 100 02/09/22 08:33 109 H 100 02/09/22 08:32 103 H 117/75 02/09/22 08:28 96 H 100 02/09/22 08:23 92 H 100 02/09/22 08:18 100 02/09/22 08:18 106 H 02/09/22 08:18 100 H 117/57 L 02/09/22 08:13 107 H 100 02/09/22 08:08 95 H 100 02/09/22 08:03 95 H 100 02/09/22 08:02 88 110/68 02/09/22 07:58 90 100 02/09/22 07:53 103 H 100 02/09/22 07:48 116 H 100 02/09/22 07:45 106 H 98/55 L 02/09/22 07:43 99 H 100 02/09/22 07:40 100 H 97/52 L 02/09/22 07:38 91 H 100 02/09/22 07:36 88 95/54 L 02/09/22 07:33 87 100 02/09/22 07:31 95 H 98/56 L 02/09/22 07:28 97 H 100 02/09/22 07:26 90 90 02/09/22 07:25 104 H 91/50 L 02/09/22 07:23 99 H 100 02/09/22 07:21 105 H 101/53 L 02/09/22 07:18 95 H 100 02/09/22 07:15 107 H 100/57 L 02/09/22 07:13 97 H 93 02/09/22 07:11 94 H 108/57 L 02/09/22 07:08 113 H 100 02/09/22 07:00 18 02/09/22 07:00 18 02/09/22 07:03 98 H 112/63 100 02/09/22 06:58 107 H 100 02/09/22 06:53 84 100 02/09/22 06:48 80 100 02/09/22 06:47 80 95/52 L 02/09/22 06:43 81 100 02/09/22 06:38 85 100 02/09/22 06:33 100 02/09/22 06:33 88 02/09/22 06:33 91 H 93/54 L 02/09/22 06:30 20 02/09/22 06:30 20 02/09/22 06:28 98 H 100 02/09/22 06:23 95 H 100 02/09/22 06:18 102 H 100 02/09/22 06:17 100 H 104/65 02/09/22 06:13 98 H 100 02/09/22 06:08 91 H 100 02/09/22 06:00 20 02/09/22 06:00 20 02/09/22 06:03 96 H 100 02/09/22 06:02 92 H 111/68 02/09/22 05:58 90 100 02/09/22 05:53 100 H 100 02/09/22 05:30 20 02/09/22 05:30 20 02/09/22 05:48 97 H 100 02/09/22 05:43 103 H 100 02/09/22 05:38 92 H 100 02/09/22 05:33 108 H 100 02/09/22 05:28 87 100 02/09/22 05:23 105 H 100 02/09/22 05:18 99 H 100 02/09/22 05:17 96 H 103/68 02/09/22 05:13 91 H 99 02/09/22 05:07 36.7 C 02/09/22 05:08 84 100 02/09/22 05:03 99 02/09/22 05:03 88 02/09/22 05:03 85 103/65 02/09/22 05:00 16 02/09/22 05:00 16 02/09/22 04:58 91 H 99 02/09/22 04:53 89 98 02/09/22 04:48 89 98 02/09/22 04:47 87 109/62 02/09/22 04:43 90 99 02/09/22 04:38 89 98 02/09/22 04:33 93 H 99 02/09/22 04:32 90 102/60 02/09/22 04:30 16 02/09/22 04:30 16 02/09/22 04:28 85 98 02/09/22 04:23 80 99 02/09/22 04:18 92 H 97 02/09/22 04:17 78 101/60 02/09/22 04:13 91 H 97 02/09/22 04:08 80 97 02/09/22 04:03 85 100/60 100 02/09/22 03:58 86 99 02/09/22 03:53 85 99 02/09/22 03:48 99 02/09/22 03:48 84 02/09/22 03:48 85 111/63 02/09/22 03:43 93 H 99 02/09/22 03:38 93 H 99 02/09/22 03:26 18 02/09/22 03:26 36.6 C 18 02/09/22 03:33 97 H 114/65 100 02/09/22 03:28 106 H 100 02/09/22 03:23 105 H 100 02/09/22 03:00 16 02/09/22 03:00 16 02/09/22 03:18 113 H 100 02/09/22 03:17 106 H 88/54 L 02/09/22 03:13 106 H 100 02/09/22 03:08 82 100 02/09/22 03:03 87 100 02/09/22 03:02 82 90/52 L 02/09/22 02:58 82 99 02/09/22 02:53 80 100 02/09/22 02:48 99 02/09/22 02:48 80 02/09/22 02:48 76 86/51 L 02/09/22 02:43 83 99 02/09/22 02:38 75 98 02/09/22 02:33 78 88/52 L 99 02/09/22 02:30 16 02/09/22 02:30 16 02/09/22 02:28 73 99 02/09/22 02:23 78 99 02/09/22 02:18 78 87/51 L 99 02/09/22 02:13 78 99 02/09/22 02:08 81 99 02/09/22 02:00 16 02/09/22 02:00 16 02/09/22 02:03 78 100 02/09/22 02:02 86 95/53 L 02/09/22 01:58 82 99 02/09/22 01:53 83 100 02/09/22 01:48 88 99 02/09/22 01:47 80 94/50 L 02/09/22 01:43 83 99 02/09/22 01:38 81 100 02/09/22 01:33 93 H 106/52 L 99 02/09/22 01:30 16 02/09/22 01:30 16 02/09/22 01:28 82 98 02/09/22 01:23 88 98 02/09/22 01:18 99 02/09/22 01:18 86 02/09/22 01:18 81 100/65 02/09/22 01:13 90 98 02/09/22 01:10 36.8 C 02/09/22 01:08 84 99 02/09/22 01:00 18 02/09/22 01:00 18 02/09/22 01:03 86 99 02/09/22 01:02 85 103/58 L 02/09/22 00:58 91 H 98 02/09/22 00:53 87 98 02/09/22 00:48 86 98 02/09/22 00:49 82 99/59 L 02/09/22 00:43 83 98 02/09/22 00:38 86 98 02/09/22 00:30 18 02/09/22 00:30 18 02/09/22 00:33 87 98 02/09/22 00:32 85 109/57 L 02/09/22 00:28 86 98 02/09/22 00:23 91 H 99 02/09/22 00:18 85 98 02/09/22 00:17 93 H 116/65 02/09/22 00:13 86 99 02/09/22 00:00 18 02/09/22 00:00 18 02/09/22 00:08 100 H 99 02/09/22 00:03 99 02/09/22 00:03 86 02/09/22 00:03 85 108/62 02/08/22 23:58 99 02/08/22 23:58 88
[2022-02-09 12:50] LABS: Creatinine Clr Calc Pharmacy 120.8 ml/min; Est GFR (African American) 133.8 ml/min; Est GFR (Non-African American) 115.5 ml/min
[2022-02-09] MEDS: OXYTOCIN 30 UNITS/500 ML BAG IV PRN (13:25)
[2022-02-09] MEDS: ceFAZolin 1000MG 1,000 MG/7.5 ML SYR IV SCH ×2 (13:35→22:57)
--- NOTE | 2022-02-09 15:16 | Labor Progress Brief Note ---
Date of Service February 09, 2022 Assessment & Plan Admission and Anticipated Discharge Date Admission Date: February 08, 2022 Physical Exam Genitourinary: Manual OB Exam: + cervical dilation 8 cm, + cervical effacement 100% and + station + 1 OB Exam Monitor Tracing: + external FHT monitor used, + external uterine monitor used, + category I and + normal FHT variability Results & Data ([facility]) Vital Signs (Past 12 Hours) Vital Signs Temp Pulse Resp BP Pulse Ox 02/09/22 15:13 101 H 100 02/09/22 15:08 122 H 99 02/09/22 15:03 90 100 02/09/22 15:01 96 H 103/53 L 02/09/22 14:58 96 H 100 02/09/22 14:53 93 H 100 02/09/22 14:48 89 100 02/09/22 14:47 88 105/52 L 02/09/22 14:43 94 H 100 02/09/22 14:38 95 H 100 02/09/22 14:33 100 02/09/22 14:33 88 02/09/22 14:33 90 106/55 L 02/09/22 14:28 92 H 100 02/09/22 14:23 89 100 02/09/22 14:18 95 H 100 02/09/22 14:17 102 H 106/54 L 02/09/22 14:13 92 H 100 02/09/22 14:08 82 100 02/09/22 14:03 18 02/09/22 14:03 36.5 C 18 02/09/22 14:03 100 02/09/22 14:03 95 H 02/09/22 14:03 91 H 98/57 L 02/09/22 13:58 91 H 100 02/09/22 13:53 89 100 02/09/22 13:48 93 H 100 02/09/22 13:46 96 H 102/56 L 02/09/22 13:43 95 H 100 02/09/22 13:38 103 H 100 02/09/22 13:33 103 H 100 02/09/22 13:32 101 H 113/67 02/09/22 13:30 103 H 90 02/09/22 13:28 100 H 100 02/09/22 13:23 102 H 100 02/09/22 13:18 98 H 100 02/09/22 13:16 93 H 103/59 L 02/09/22 13:13 95 H 100 02/09/22 13:08 100 H 100 02/09/22 13:03 86 100 02/09/22 13:01 102 H 02/09/22 13:01 103 H 101/60 94 02/09/22 12:58 99 H 100 02/09/22 12:53 90 100 02/09/22 12:49 99 H 93 02/09/22 12:48 91 H 95 02/09/22 12:43 99 H 100 02/09/22 12:38 98 H 100 02/09/22 12:33 90 100 02/09/22 12:31 84 99/54 L 02/09/22 12:28 98 H 100 02/09/22 12:23 92 H 100 02/09/22 12:18 100 02/09/22 12:18 86 02/09/22 12:18 97 H 99/58 L 02/09/22 12:13 105 H 100 02/09/22 12:08 97 H 100 02/09/22 12:03 37.0 C 99 H 16 100 02/09/22 12:02 96 H 98/53 L 02/09/22 11:58 97 H 100 02/09/22 11:53 98 H 100 02/09/22 11:48 100 02/09/22 11:48 92 H 02/09/22 11:48 85 97/59 L 02/09/22 11:43 91 H 100 02/09/22 11:38 99 H 100 02/09/22 11:33 101 H 100 02/09/22 11:31 89 105/60 02/09/22 11:28 93 H 99 02/09/22 11:23 105 H 100 02/09/22 11:18 81 100 02/09/22 11:17 94 H 109/66 02/09/22 11:13 94 H 100 02/09/22 11:08 94 H 100 02/09/22 11:03 81 100 02/09/22 11:02 90 111/60 02/09/22 10:58 95 H 100 02/09/22 10:53 96 H 98 02/09/22 10:48 97 H 100 02/09/22 10:47 101 H 91/53 L 02/09/22 10:43 92 H 100 02/09/22 10:38 88 100 02/09/22 10:33 84 99 02/09/22 10:31 78 87/49 L 02/09/22 10:28 83 99 02/09/22 10:23 87 98 02/09/22 10:18 83 100 02/09/22 10:17 82 95/53 L 02/09/22 10:13 82 100 02/09/22 10:08 86 100 02/09/22 10:03 93 H 100 02/09/22 10:01 87 101/54 L 02/09/22 09:58 89 100 02/09/22 09:53 91 H 100 02/09/22 09:48 88 100 02/09/22 09:47 87 86/53 L 02/09/22 09:43 88 100 02/09/22 09:38 85 100 02/09/22 09:33 103 H 100 02/09/22 09:31 37.0 C 125 H 17 113/65 02/09/22 09:28 88 100 02/09/22 09:23 90 100 02/09/22 09:18 100 02/09/22 09:18 86 02/09/22 09:18 93 H 111/63 02/09/22 09:13 95 H 100 02/09/22 09:08 90 100 02/09/22 09:03 84 100 02/09/22 09:02 95 H 119/73 02/09/22 08:58 86 100 02/09/22 08:57 82 105/65 02/09/22 08:53 114 H 100 02/09/22 08:48 112 H 100 02/09/22 08:47 101 H 109/68 02/09/22 08:43 102 H 100 02/09/22 08:38 95 H 100 02/09/22 08:33 109 H 100 02/09/22 08:32 103 H 117/75 02/09/22 08:28 96 H 100 02/09/22 08:23 92 H 100 02/09/22 08:18 100 02/09/22 08:18 106 H 02/09/22 08:18 100 H 117/57 L 02/09/22 08:13 107 H 100 02/09/22 08:08 95 H 100 02/09/22 08:03 95 H 100 02/09/22 08:02 88 110/68 02/09/22 07:58 90 100 02/09/22 07:53 103 H 100 02/09/22 07:48 116 H 100 02/09/22 07:45 106 H 98/55 L 02/09/22 07:43 99 H 100 02/09/22 07:40 100 H 97/52 L 02/09/22 07:38 91 H 100 02/09/22 07:36 88 95/54 L 02/09/22 07:33 87 100 02/09/22 07:31 95 H 98/56 L 02/09/22 07:28 97 H 100 02/09/22 07:26 90 90 02/09/22 07:25 104 H 91/50 L 02/09/22 07:23 99 H 100 02/09/22 07:21 105 H 101/53 L 02/09/22 07:18 95 H 100 02/09/22 07:15 107 H 100/57 L 02/09/22 07:13 97 H 93 02/09/22 07:11 94 H 108/57 L 02/09/22 07:08 113 H 100 02/09/22 07:00 18 02/09/22 07:00 18 02/09/22 07:03 98 H 112/63 100 02/09/22 06:58 107 H 100 02/09/22 06:53 84 100 02/09/22 06:48 80 100 02/09/22 06:47 80 95/52 L 02/09/22 06:43 81 100 02/09/22 06:38 85 100 02/09/22 06:33 100 02/09/22 06:33 88 02/09/22 06:33 91 H 93/54 L 02/09/22 06:30 20 02/09/22 06:30 20 02/09/22 06:28 98 H 100 02/09/22 06:23 95 H 100 02/09/22 06:18 102 H 100 02/09/22 06:17 100 H 104/65 02/09/22 06:13 98 H 100 02/09/22 06:08 91 H 100 02/09/22 06:00 20 02/09/22 06:00 20 02/09/22 06:03 96 H 100 02/09/22 06:02 92 H 111/68 02/09/22 05:58 90 100 02/09/22 05:53 100 H 100 02/09/22 05:30 20 02/09/22 05:30 20 02/09/22 05:48 97 H 100 02/09/22 05:43 103 H 100 02/09/22 05:38 92 H 100 02/09/22 05:33 108 H 100 02/09/22 05:28 87 100 02/09/22 05:23 105 H 100 02/09/22 05:18 99 H 100 02/09/22 05:17 96 H 103/68 02/09/22 05:13 91 H 99 02/09/22 05:07 36.7 C 02/09/22 05:08 84 100 02/09/22 05:03 99 02/09/22 05:03 88 02/09/22 05:03 85 103/65 02/09/22 05:00 16 02/09/22 05:00 16 02/09/22 04:58 91 H 99 02/09/22 04:53 89 98 02/09/22 04:48 89 98 02/09/22 04:47 87 109/62 02/09/22 04:43 90 99 02/09/22 04:38 89 98 02/09/22 04:33 93 H 99 02/09/22 04:32 90 102/60 02/09/22 04:30 16 02/09/22 04:30 16 02/09/22 04:28 85 98 02/09/22 04:23 80 99 02/09/22 04:18 92 H 97 02/09/22 04:17 78 101/60 02/09/22 04:13 91 H 97 02/09/22 04:08 80 97 02/09/22 04:03 85 100/60 100 02/09/22 03:58 86 99 02/09/22 03:53 85 99 02/09/22 03:48 99 02/09/22 03:48 84 02/09/22 03:48 85 111/63 02/09/22 03:43 93 H 99 02/09/22 03:38 93 H 99 02/09/22 03:26 18 02/09/22 03:26 36.6 C 18 02/09/22 03:33 97 H 114/65 100 02/09/22 03:28 106 H 100 02/09/22 03:23 105 H 100 02/09/22 03:18 113 H 100 02/09/22 03:17 106 H 88/54 L
[2022-02-09] MEDS ORDERED: fentaNYL 2MCG/ML ROPIVACAINE 1.25MG/ML 100 ML BAG EPI ONE (18:15)
[2022-02-09] MEDS ORDERED: NALBUPHINE HCL INJ 10 MG/ML AMP IV PRN (19:09)
[2022-02-09] MEDS ORDERED: NALOXONE HCL 0.4 MG/1 ML VIAL/CARP IV PRN (19:09)
[2022-02-09] MEDS ORDERED: fentaNYL 2MCG/ML ROPIVACAINE 1.25MG/ML 100 ML BAG EPI PRN (19:09)
[2022-02-09] MEDS ORDERED: NALOXONE HCL 1 MG in SODIUM CHLORIDE 0.9% 1000ML 1,000 ML IV PRN (19:09)
[2022-02-09] MEDS ORDERED: ePHEDrine sulfate 50 MG/ML AMP IV PRN (19:09)
[2022-02-09] MEDS ORDERED: diphenhydrAMINE 50 MG/ML VIAL IV PRN (19:09)
--- NOTE | 2022-02-09 20:15 | Labor Progress Brief Note ---
Date of Service February 09, 2022 Assessment & Plan Admission and Anticipated Discharge Date Admission Date: February 08, 2022 Physical Exam Genitourinary: Manual OB Exam: + cervical dilation 8 cm and 9 cm, + cervical effacement 100%, + station + 1 and + amniotic fluid clear OB Exam Monitor Tracing: + external FHT monitor used, + external uterine monitor used, + category I and + normal FHT variability Results & Data ([facility]) Vital Signs (Past 12 Hours) Vital Signs Temp Pulse Resp BP Pulse Ox 02/09/22 19:05 36.6 C 18 02/09/22 20:13 102 H 100 02/09/22 20:08 99 H 100 02/09/22 20:03 95 H 100 02/09/22 20:01 95 H 112/62 02/09/22 19:58 96 H 100 02/09/22 19:53 90 100 02/09/22 19:48 96 H 100 02/09/22 19:47 100 H 107/64 02/09/22 19:43 88 100 02/09/22 19:38 95 H 100 02/09/22 19:33 96 H 100 02/09/22 19:31 103 H 105/64 02/09/22 19:29 100 H 94 02/09/22 19:28 115 H 98 02/09/22 19:23 114 H 100 02/09/22 19:18 100 H 100 02/09/22 19:16 108 H 107/64 02/09/22 19:13 93 H 100 02/09/22 19:11 111 H 85 L 02/09/22 19:08 101 H 100 02/09/22 19:03 100 02/09/22 19:03 98 H 02/09/22 19:03 96 H 106/55 L 02/09/22 18:58 96 H 100 02/09/22 18:53 96 H 100 02/09/22 18:48 95 H 100/56 L 100 02/09/22 18:42 20 02/09/22 18:42 36.7 C 20 02/09/22 18:43 97 H 100 02/09/22 18:38 87 100 02/09/22 18:33 93 H 100 02/09/22 18:32 97 H 101/50 L 02/09/22 18:28 98 H 100 02/09/22 18:23 94 H 100 02/09/22 18:18 103 H 100 02/09/22 18:13 93 H 100 02/09/22 18:08 96 H 100 02/09/22 18:03 105 H 100 02/09/22 18:02 105 H 117/69 02/09/22 17:58 98 H 100 02/09/22 17:53 99 H 100 02/09/22 17:48 105 H 99 02/09/22 17:46 100 H 99/63 L 02/09/22 17:43 97 H 100 02/09/22 17:38 105 H 100 02/09/22 17:33 96 H 100 02/09/22 17:32 99 H 109/68 02/09/22 17:28 95 H 100 02/09/22 17:23 97 H 100 02/09/22 17:18 121 H 100 02/09/22 17:16 103 H 115/69 02/09/22 17:13 99 H 100 02/09/22 17:08 95 H 100 02/09/22 17:03 117 H 100 02/09/22 17:02 116 H 124/80 02/09/22 16:58 114 H 100 02/09/22 16:53 95 H 100 02/09/22 16:48 97 H 100 02/09/22 16:47 91 H 102/58 L 02/09/22 16:43 101 H 100 02/09/22 16:38 95 H 100 02/09/22 16:33 91 H 100 02/09/22 16:31 89 102/58 L 02/09/22 16:28 89 100 02/09/22 16:23 86 100 02/09/22 16:18 92 H 100 02/09/22 16:16 93 H 97/52 L 02/09/22 16:13 87 100 02/09/22 16:08 98 H 100 02/09/22 16:03 97 H 100 02/09/22 16:02 99 H 112/68 02/09/22 16:00 101 H 92 02/09/22 15:58 94 H 99 02/09/22 15:53 99 H 100 02/09/22 15:48 93 H 100 02/09/22 15:46 88 99/56 L 02/09/22 15:43 91 H 100 02/09/22 15:38 89 100 02/09/22 15:33 100 02/09/22 15:33 84 02/09/22 15:33 95 H 112/59 L 02/09/22 15:28 93 H 100 02/09/22 15:24 86 93 02/09/22 15:23 95 H 100 02/09/22 15:18 94 H 100 02/09/22 15:16 103 H 117/55 L 02/09/22 15:13 101 H 100 02/09/22 15:08 122 H 99 02/09/22 15:03 90 100 02/09/22 15:01 96 H 103/53 L 02/09/22 14:58 96 H 100 02/09/22 14:53 93 H 100 02/09/22 14:48 89 100 02/09/22 14:47 88 105/52 L 02/09/22 14:43 94 H 100 02/09/22 14:38 95 H 100 02/09/22 14:33 100 02/09/22 14:33 88 02/09/22 14:33 90 106/55 L 02/09/22 14:28 92 H 100 02/09/22 14:23 89 100 02/09/22 14:18 95 H 100 02/09/22 14:17 102 H 106/54 L 02/09/22 14:13 92 H 100 02/09/22 14:08 82 100 02/09/22 14:03 18 02/09/22 14:03 36.5 C 18 02/09/22 14:03 100 02/09/22 14:03 95 H 02/09/22 14:03 91 H 98/57 L 02/09/22 13:58 91 H 100 02/09/22 13:53 89 100 02/09/22 13:48 93 H 100 02/09/22 13:46 96 H 102/56 L 02/09/22 13:43 95 H 100 02/09/22 13:38 103 H 100 02/09/22 13:33 103 H 100 02/09/22 13:32 101 H 113/67 02/09/22 13:30 103 H 90 02/09/22 13:28 100 H 100 02/09/22 13:23 102 H 100 02/09/22 13:18 98 H 100 02/09/22 13:16 93 H 103/59 L 02/09/22 13:13 95 H 100 02/09/22 13:08 100 H 100 02/09/22 13:03 86 100 02/09/22 13:01 102 H 02/09/22 13:01 103 H 101/60 94 02/09/22 12:58 99 H 100 02/09/22 12:53 90 100 02/09/22 12:49 99 H 93 02/09/22 12:48 91 H 95 02/09/22 12:43 99 H 100 02/09/22 12:38 98 H 100 02/09/22 12:33 90 100 02/09/22 12:31 84 99/54 L 02/09/22 12:28 98 H 100 02/09/22 12:23 92 H 100 02/09/22 12:18 100 02/09/22 12:18 86 02/09/22 12:18 97 H 99/58 L 02/09/22 12:13 105 H 100 02/09/22 12:08 97 H 100 02/09/22 12:03 37.0 C 99 H 16 100 02/09/22 12:02 96 H 98/53 L 02/09/22 11:58 97 H 100 02/09/22 11:53 98 H 100 02/09/22 11:48 100 02/09/22 11:48 92 H 02/09/22 11:48 85 97/59 L 02/09/22 11:43 91 H 100 02/09/22 11:38 99 H 100 02/09/22 11:33 101 H 100 02/09/22 11:31 89 105/60 02/09/22 11:28 93 H 99 02/09/22 11:23 105 H 100 02/09/22 11:18 81 100 02/09/22 11:17 94 H 109/66 02/09/22 11:13 94 H 100 02/09/22 11:08 94 H 100 02/09/22 11:03 81 100 02/09/22 11:02 90 111/60 02/09/22 10:58 95 H 100 02/09/22 10:53 96 H 98 02/09/22 10:48 97 H 100 02/09/22 10:47 101 H 91/53 L 02/09/22 10:43 92 H 100 02/09/22 10:38 88 100 02/09/22 10:33 84 99 02/09/22 10:31 78 87/49 L 02/09/22 10:28 83 99 02/09/22 10:23 87 98 02/09/22 10:18 83 100 02/09/22 10:17 82 95/53 L 02/09/22 10:13 82 100 02/09/22 10:08 86 100 02/09/22 10:03 93 H 100 02/09/22 10:01 87 101/54 L 02/09/22 09:58 89 100 02/09/22 09:53 91 H 100 02/09/22 09:48 88 100 02/09/22 09:47 87 86/53 L 02/09/22 09:43 88 100 02/09/22 09:38 85 100 02/09/22 09:33 103 H 100 02/09/22 09:31 37.0 C 125 H 17 113/65 02/09/22 09:28 88 100 02/09/22 09:23 90 100 02/09/22 09:18 100 02/09/22 09:18 86 02/09/22 09:18 93 H 111/63 02/09/22 09:13 95 H 100 02/09/22 09:08 90 100 02/09/22 09:03 84 100 02/09/22 09:02 95 H 119/73 02/09/22 08:58 86 100 02/09/22 08:57 82 105/65 02/09/22 08:53 114 H 100 02/09/22 08:48 112 H 100 02/09/22 08:47 101 H 109/68 02/09/22 08:43 102 H 100 02/09/22 08:38 95 H 100 02/09/22 08:33 109 H 100 02/09/22 08:32 103 H 117/75 02/09/22 08:28 96 H 100 02/09/22 08:23 92 H 100 02/09/22 08:18 100 02/09/22 08:18 106 H 02/09/22 08:18 100 H 117/57 L
--- NOTE | 2022-02-09 21:41 | Labor Progress Brief Note ---
Date of Service February 09, 2022 Assessment & Plan Admission and Anticipated Discharge Date Admission Date: February 08, 2022 Physical Exam Genitourinary: Manual OB Exam: + cervical dilation 8 cm and 9 cm, + cervical effacement 100%, + station + 1 and + amniotic fluid clear no progress over several hours. Will recommend section for arrest of progress. Consent obtained. Results & Data ([facility]) Vital Signs (Past 12 Hours) Vital Signs Temp Pulse Resp BP Pulse Ox 02/09/22 19:05 36.6 C 18 02/09/22 21:33 106 H 100 02/09/22 21:31 105 H 107/55 L 02/09/22 21:28 92 H 99 02/09/22 21:23 92 H 100 02/09/22 21:18 100 H 100 02/09/22 21:16 95 H 98/54 L 02/09/22 21:13 95 H 99 02/09/22 21:08 95 H 100 02/09/22 21:03 92 H 100 02/09/22 21:01 105 H 102/50 L 02/09/22 20:58 93 H 100 02/09/22 20:53 97 H 100 02/09/22 20:48 101 H 100 02/09/22 20:46 92 H 96/54 L 02/09/22 20:43 91 H 100 02/09/22 20:38 92 H 100 02/09/22 20:24 18 02/09/22 20:24 18 02/09/22 20:33 95 H 100 02/09/22 20:31 102 H 101/50 L 02/09/22 20:28 93 H 100 02/09/22 20:23 89 100 02/09/22 20:18 93 H 100 02/09/22 20:16 100 H 104/55 L 02/09/22 20:13 102 H 100 02/09/22 20:08 99 H 100 02/09/22 20:03 95 H 100 02/09/22 20:01 95 H 112/62 02/09/22 19:58 96 H 100 02/09/22 19:53 90 100 02/09/22 19:48 96 H 100 02/09/22 19:47 100 H 107/64 02/09/22 19:43 88 100 02/09/22 19:38 95 H 100 02/09/22 19:33 96 H 100 02/09/22 19:31 103 H 105/64 02/09/22 19:29 100 H 94 02/09/22 19:28 115 H 98 02/09/22 19:23 114 H 100 02/09/22 19:18 100 H 100 02/09/22 19:16 108 H 107/64 02/09/22 19:13 93 H 100 02/09/22 19:11 111 H 85 L 02/09/22 19:08 101 H 100 02/09/22 19:03 100 02/09/22 19:03 98 H 02/09/22 19:03 96 H 106/55 L 02/09/22 18:58 96 H 100 02/09/22 18:53 96 H 100 02/09/22 18:48 95 H 100/56 L 100 02/09/22 18:42 20 02/09/22 18:42 36.7 C 20 02/09/22 18:43 97 H 100 02/09/22 18:38 87 100 02/09/22 18:33 93 H 100 02/09/22 18:32 97 H 101/50 L 02/09/22 18:28 98 H 100 02/09/22 18:23 94 H 100 02/09/22 18:18 103 H 100 02/09/22 18:13 93 H 100 02/09/22 18:08 96 H 100 02/09/22 18:03 105 H 100 02/09/22 18:02 105 H 117/69 02/09/22 17:58 98 H 100 02/09/22 17:53 99 H 100 02/09/22 17:48 105 H 99 02/09/22 17:46 100 H 99/63 L 02/09/22 17:43 97 H 100 02/09/22 17:38 105 H 100 02/09/22 17:33 96 H 100 02/09/22 17:32 99 H 109/68 02/09/22 17:28 95 H 100 02/09/22 17:23 97 H 100 02/09/22 17:18 121 H 100 02/09/22 17:16 103 H 115/69 02/09/22 17:13 99 H 100 02/09/22 17:08 95 H 100 02/09/22 17:03 117 H 100 02/09/22 17:02 116 H 124/80 02/09/22 16:58 114 H 100 02/09/22 16:53 95 H 100 02/09/22 16:48 97 H 100 02/09/22 16:47 91 H 102/58 L 02/09/22 16:43 101 H 100 02/09/22 16:38 95 H 100 02/09/22 16:33 91 H 100 02/09/22 16:31 89 102/58 L 02/09/22 16:28 89 100 02/09/22 16:23 86 100 02/09/22 16:18 92 H 100 02/09/22 16:16 93 H 97/52 L 02/09/22 16:13 87 100 02/09/22 16:08 98 H 100 02/09/22 16:03 97 H 100 02/09/22 16:02 99 H 112/68 02/09/22 16:00 101 H 92 02/09/22 15:58 94 H 99 02/09/22 15:53 99 H 100 02/09/22 15:48 93 H 100 02/09/22 15:46 88 99/56 L 02/09/22 15:43 91 H 100 02/09/22 15:38 89 100 02/09/22 15:33 100 02/09/22 15:33 84 02/09/22 15:33 95 H 112/59 L 02/09/22 15:28 93 H 100 02/09/22 15:24 86 93 02/09/22 15:23 95 H 100 02/09/22 15:18 94 H 100 02/09/22 15:16 103 H 117/55 L 02/09/22 15:13 101 H 100 02/09/22 15:08 122 H 99 02/09/22 15:03 90 100 02/09/22 15:01 96 H 103/53 L 02/09/22 14:58 96 H 100 02/09/22 14:53 93 H 100 02/09/22 14:48 89 100 02/09/22 14:47 88 105/52 L 02/09/22 14:43 94 H 100 02/09/22 14:38 95 H 100 02/09/22 14:33 100 02/09/22 14:33 88 02/09/22 14:33 90 106/55 L 02/09/22 14:28 92 H 100 02/09/22 14:23 89 100 02/09/22 14:18 95 H 100 02/09/22 14:17 102 H 106/54 L 02/09/22 14:13 92 H 100 02/09/22 14:08 82 100 02/09/22 14:03 18 02/09/22 14:03 36.5 C 18 02/09/22 14:03 100 02/09/22 14:03 95 H 02/09/22 14:03 91 H 98/57 L 02/09/22 13:58 91 H 100 02/09/22 13:53 89 100 02/09/22 13:48 93 H 100 02/09/22 13:46 96 H 102/56 L 02/09/22 13:43 95 H 100 02/09/22 13:38 103 H 100 02/09/22 13:33 103 H 100 02/09/22 13:32 101 H 113/67 02/09/22 13:30 103 H 90 02/09/22 13:28 100 H 100 02/09/22 13:23 102 H 100 02/09/22 13:18 98 H 100 02/09/22 13:16 93 H 103/59 L 02/09/22 13:13 95 H 100 02/09/22 13:08 100 H 100 02/09/22 13:03 86 100 02/09/22 13:01 102 H 02/09/22 13:01 103 H 101/60 94 02/09/22 12:58 99 H 100 02/09/22 12:53 90 100 02/09/22 12:49 99 H 93 02/09/22 12:48 91 H 95 02/09/22 12:43 99 H 100 02/09/22 12:38 98 H 100 02/09/22 12:33 90 100 02/09/22 12:31 84 99/54 L 02/09/22 12:28 98 H 100 02/09/22 12:23 92 H 100 02/09/22 12:18 100 02/09/22 12:18 86 02/09/22 12:18 97 H 99/58 L 02/09/22 12:13 105 H 100 02/09/22 12:08 97 H 100 02/09/22 12:03 37.0 C 99 H 16 100 02/09/22 12:02 96 H 98/53 L 02/09/22 11:58 97 H 100 02/09/22 11:53 98 H 100 02/09/22 11:48 100 02/09/22 11:48 92 H 02/09/22 11:48 85 97/59 L 02/09/22 11:43 91 H 100 02/09/22 11:38 99 H 100 02/09/22 11:33 101 H 100 02/09/22 11:31 89 105/60 02/09/22 11:28 93 H 99 02/09/22 11:23 105 H 100 02/09/22 11:18 81 100 02/09/22 11:17 94 H 109/66 02/09/22 11:13 94 H 100 02/09/22 11:08 94 H 100 02/09/22 11:03 81 100 02/09/22 11:02 90 111/60 02/09/22 10:58 95 H 100 02/09/22 10:53 96 H 98 02/09/22 10:48 97 H 100 02/09/22 10:47 101 H 91/53 L 02/09/22 10:43 92 H 100 02/09/22 10:38 88 100 02/09/22 10:33 84 99 02/09/22 10:31 78 87/49 L 02/09/22 10:28 83 99 02/09/22 10:23 87 98 02/09/22 10:18 83 100 02/09/22 10:17 82 95/53 L 02/09/22 10:13 82 100 02/09/22 10:08 86 100 02/09/22 10:03 93 H 100 02/09/22 10:01 87 101/54 L 02/09/22 09:58 89 100 02/09/22 09:53 91 H 100 02/09/22 09:48 88 100 02/09/22 09:47 87 86/53 L 02/09/22 09:43 88 100
[2022-02-09] MEDS ORDERED: LACTATED RINGER'S 1,000 ML IV SCH (21:45)
[2022-02-09] MEDS ORDERED: LIDOCAINE 2%/EPINEPHRINE 1:200,000 20 ML SDV ONE (21:59)
[2022-02-09] MEDS ORDERED: MoRPHine SULFATE PF 1 MG/ML 10 ML AMP/VIAL ONE (21:59)
[2022-02-09] MEDS ORDERED: AZITHROMYCIN 500 MG in DEXTROSE 5% 250 ML IV ONE (22:00)
[2022-02-09] MEDS ORDERED: OXYTOCIN 10 UNITS/ML 10ML VIAL ONE (22:47)
[2022-02-09] MEDS ORDERED: METHYLERGONOVINE MALEATE 0.2 MG/ML AMP ONE (22:47)
[2022-02-09] MEDS ORDERED: PHENYLEPHRINE 100MCG/ML 5ML SYR ONE (22:48)
[2022-02-09] MEDS ORDERED: fentaNYL citrate 100 MCG/2 ML VIAL ONE (23:30)
--- NOTE | 2022-02-09 23:32 | Post Operative Brief Note ---
Immediate Post Op Note v1 Date of Surgery February 09, 2022 Pre & Post Diagnosis Operation Date: 02/09/22 21:40 <No data on this case meets the specified criteria> I identified the patient and participated in the time-out.: Yes Procedure Operation Date: 02/09/22 21:40 Actual Procedures p Primary Section. Live male child at [id number] - David Gilmore MD Surgeon David Gilmore MD Desk Clerks Supervisor Dr. Arias Estimated Blood Loss 600 Findings Consistent with Post-Op Diagnosis live male Apgars 8/9 Fluids LR Specimens placenta Drains Martinez Catheter (placed prior to preop, draining clear yellow urine) Anesthesia Type Labor Epidural Complications None Disposition Accompanied Patient To Recovery: Yes Overlapping Procedure I was present for: the critical portions of procedure. I was immediately available: during the entire case. Back up surgeon: used during listed procedure.
--- NOTE | 2022-02-09 23:43 | Communication Note ---
Date of Service: February 09, 2022. After arrival in PACU, pt c/o severe incisional pain. Epidural morphine 4 mg given. Fentanyl 100 mcg plus morphine 6 mg give IV. Pt reported noticeable improvement. For observation in PACU.
--- NOTE | 2022-02-09 23:54 | Anesthesia Procedure Note ---
Date of Service February 09, 2022 Anesthesia Post Epidural Note Vital Signs Vital Signs: Temp Pulse Resp BP Pulse Ox 36.6 C 112 H 18 124/61 98 02/09/22 19:05 02/09/22 23:50 02/09/22 20:24 02/09/22 23:45 02/09/22 23:50 Pain Intensity Bilateral Abdomen: Pain Intensity: 7 Notes Mental Status: alert / awake / arousable Nausea / Vomiting: adequately controlled Pain: adequately controlled Airway Patency, RR, SpO2: stable & adequate BP & HR: stable & adequate Hydration State: stable & adequate Neuraxial Anesthesia: was administered and sensory block is resolving Anesthetic Complications: no major complications apparent and Pt Satisfied with anesthetic care Epidural: Removed without complications and With tip intact
[2022-02-09] MEDS ORDERED: OXYTOCIN 10 UNITS/ML 10ML VIAL IM ONE (23:56)
[2022-02-09] MEDS ORDERED: ONDANSETRON INJ 2 MG/ML 2 ML VIAL ONE (23:58)
[2022-02-10] MEDS ORDERED: GENTAMICIN CONSULT ACTIVE PRN (00:07)
--- NOTE | 2022-02-10 00:11 | Post Operative Brief Note ---
Immediate Post Op Note v1 Date of Surgery February 10, 2022 Pre & Post Diagnosis Operation Date: 02/09/22 21:40 <No data on this case meets the specified criteria> I identified the patient and participated in the time-out.: Yes Procedure Operation Date: 02/09/22 21:40 Actual Procedures p Primary Section. Live male child at 2238 - David Gilmore MD Surgeon David Gilmore MD Education Director Dr. Arias Estimated Blood Loss 600 Findings Consistent with Post-Op Diagnosis live male Apgars 8/9 weight 8lb 4.4 oz. Fluids LR Specimens placenta Drains Martinez Catheter (placed prior to preop, draining clear yellow urine) Anesthesia Type Labor Epidural Complications none Disposition Accompanied Patient To Recovery: Yes Overlapping Procedure I was present for: the critical portions of procedure. I was immediately available: during the entire case. Back up surgeon: used during listed procedure.
[2022-02-10] MEDS ORDERED: PROMETHAZINE HCL 25 MG in SODIUM CHLORIDE 0.9% 50 ML IV PRN ×2 (00:13→02:43)
[2022-02-10] MEDS ORDERED: diphenhydrAMINE Capsule 25 MG CAP PO PRN (00:13)
[2022-02-10] MEDS ORDERED: LACTATED RINGER'S 1,000 ML IV SCH (00:13)
[2022-02-10] MEDS ORDERED: BENZOCAINE 20% AER SPR 82.5 GM CAN EXT PRN (00:13)
[2022-02-10] MEDS ORDERED: diphenhydrAMINE 50 MG/ML VIAL IV PRN ×2 (00:13→02:43)
[2022-02-10] MEDS ORDERED: MAGNESIUM HYDROXIDE SUSP 30 ML UDC PO PRN (00:13)
[2022-02-10] MEDS ORDERED: MEPERIDINE HCL 50 MG/ML CARP IV PRN (00:13)
[2022-02-10] MEDS ORDERED: ONDANSETRON INJ 2 MG/ML 2 ML VIAL IV PRN ×2 (00:13→02:43)
[2022-02-10] MEDS ORDERED: HYDROCORTISONE ACETATE 25 MG SUPP PR PRN (00:13)
[2022-02-10] MEDS ORDERED: DIPHTHERIA/TETANUS/PERTUSSIS 0.5 ML SYR/VIAL IM ONE (00:13)
[2022-02-10] MEDS ORDERED: SENNA 8.6 MG TAB PO PRN (00:13)
[2022-02-10] MEDS: OXYTOCIN 30 UNITS in LACTATED RINGER'S 1,000 ML IV SCH ×2 (00:41→12:03)
[2022-02-10] MEDS: AMPICILLIN 2,000 MG in SODIUM CHLOR 0.9% AD-VAN 100 ML IV SCH ×5 (00:49→18:27)
--- NOTE | 2022-02-10 01:16 | Operative Report (OR) ---
DATE OF SURGERY: 02/09/2022. PREOPERATIVE DIAGNOSES: 1. Arrest of progress of labor. 2. Persistent occiput transverse lie. POSTOPERATIVE DIAGNOSES: 1. Arrest of progress of labor. 2. Persistent occiput transverse lie. 3. Chorioamnionitis. PROCEDURE: section, low segment transverse. SURGEON: David Gilmore MD. PLASTICS FABRICATION SUPERVISOR: Christian Arias MD. ANESTHESIA: Epidural with Duramorph. COMPLICATIONS: None. FINDINGS: Live male, Apgars 8 and 9, weight 8 pounds 4.4 ounces. DRAINS: Martinez. CLINICAL HISTORY: The patient is a 41-year-old female, para 1-0-1-1, at 39 weeks and 3 days with ind uction of labor due to IVF and advanced maternal age. The patient progressed to 8.5 cm and remained there for several hours. She had been ruptured for greater than 24 hours. Decision was made based o n clinical diagnosis of CPD and arrest of progress to perform a section. A timeout was call ed and antibiotics were given preop. DESCRIPTION OF PROCEDURE: Under satisfactory epidural anesthesia, the patient was prepped and draped in the usual sterile fashion. A low Pfannenstiel incision was made, carrying the incision down in s uccessive layers into the abdomen, into the peritoneal cavity. Pickups with teeth and Metzenbaums wer e used to develop a bladder flap. This was dissected down sharply. Upon entering into the uterine c avity, the incision was nicked and the incision was widened in the AP diameter. Clear fluid was note d. There was an obvious odor to the amniotic fluid, which was clear. The tissues surrounding the ut erus seemed to be edematous consistent with chorioamnionitis. The infant was then delivered from the vertex presentation and found to be in the transverse lie with a deep transverse arrest. There was a delayed cord clamping. The baby was handed to the labor relations specialist. Apgars were 8 and 9, weight 8 pounds and 4.4 ounces. Cord blood was obtained followed by manual delivery of the placenta, which was intact and submitted to pathology. The uterus was then exteriorized. Ring forceps were then pl aced on both angles in the inferior margin. IM pit was given. The uterus was closed in a double laye r closure with 0 Vicryl suture in a continuous interlocking fashion, followed by another imbricating layer of 0 Vicryl suture. Tubes and ovaries bilaterally were found to be within normal limits. The initial sponge, needle, and instrument count were found to be correct. The uterus was then placed ba ck into the normal anatomical position. The lower uterine segment was inspected. There was no activ e bleeding. Milli was placed on the lower scar. The muscle was then reapproximated with a 0 Vicryl suture in a [id number] fashion. The fascia was reapproximated from both ends using 0 Vicryl robles ture. Subcuticular layer was closed with 2-0 plain suture and the skin was reapproximated with stapl es. Clear urine was seen in the Martinez bag. Estimated blood loss was 600 mL. Final sponge, needle a nd instrument count were found to be correct. The patient was placed in the supine position, taken t o recovery room in stable condition. Please note that Dr. Arias was present and available for assist ance for retraction, assistance for pushing to a vertex and for help with closure of the uterus and a bdomen. Job ID: [id number]
[2022-02-10] MEDS: GENTAMICIN SULFATE 350 MG in DEXTROSE 5% 100 ML IV SCH (02:34)
[2022-02-10] MEDS ORDERED: MEPERIDINE HCL 25 MG/ML CARP/VIAL IV PRN (02:43)
[2022-02-10] MEDS ORDERED: NALOXONE HCL 1 MG in SODIUM CHLORIDE 0.9% 1000ML 1,000 ML IV PRN (02:43)
[2022-02-10] MEDS ORDERED: ePHEDrine sulfate 50 MG/ML AMP IV PRN (02:43)
[2022-02-10] MEDS ORDERED: HYDROmorphone INJ 0.5 MG/0.5 ML SYR IV PRN (02:43)
[2022-02-10] MEDS ORDERED: MoRPHine SULFATE PF 1 MG/ML 10 ML AMP/VIAL INT SPINAL ONE (02:43)
[2022-02-10] MEDS ORDERED: LACTATED RINGER'S 500 ML IV PRN (02:43)
[2022-02-10] MEDS ORDERED: NALOXONE HCL 0.4 MG/1 ML VIAL/CARP IV PRN (02:43)
[2022-02-10] MEDS ORDERED: MoRPHine SULFATE 2 MG/ML CARP IV PRN (02:43)
[2022-02-10] MEDS ORDERED: NALOXONE HCL 0.08 MG in SYRINGE 1.8 ML IV PRN (02:43)
[2022-02-10] MEDS ORDERED: NALBUPHINE HCL INJ 10 MG/ML AMP IV PRN (02:43)
[2022-02-10] MEDS ORDERED: DC INTRASPINAL MORPHINE SCH (02:45)
[2022-02-10] MEDS ORDERED: NO NARCOTICS OR SEDATIVES SCH (02:45)
[2022-02-10] MEDS ORDERED: SODIUM CHLORIDE 0.9% 1000ML 1,000 ML IV SCH (02:45)
--- NOTE | 2022-02-10 02:46 | Anesthesiology Progress Note ---
Date of Service February 10, 2022 Anesthesia Post Procedure Vital Signs Vital Signs: Temp Pulse Pulse Resp BP BP Pulse Ox 02/10/22 02:30 18 100 02/10/22 02:30 36.6 C 112 H 18 113/74 100 02/10/22 01:30 36.8 C 105 H 16 135/62 96 02/10/22 01:30 16 96 02/10/22 00:45 18 02/10/22 00:05 17 02/09/22 23:55 16 02/09/22 23:55 18 02/09/22 23:45 17 02/09/22 23:35 18 02/09/22 23:25 16 02/09/22 23:15 36.5 C 30 H 02/09/22 19:05 36.6 C 18 02/10/22 01:25 103 H 111/55 L 02/10/22 01:23 114 H 135/62 02/10/22 01:20 103 H 95 02/10/22 01:15 97 02/10/22 01:15 114 H 02/10/22 01:15 112 H 119/62 02/10/22 01:10 105 H 97 02/10/22 01:05 121 H 117/62 97 02/10/22 01:00 112 H 97 02/10/22 00:55 96 02/10/22 00:55 95 H 02/10/22 00:55 102 H 119/61 02/10/22 00:50 113 H 97 02/10/22 00:45 96 02/10/22 00:45 100 H 02/10/22 00:45 99 H 123/61 02/10/22 00:40 93 H 96 02/10/22 00:35 91 H 114/56 L 97 02/10/22 00:30 105 H 97 02/10/22 00:25 97 02/10/22 00:25 102 H 02/10/22 00:25 108 H 117/58 L 02/10/22 00:20 116 H 97 02/10/22 00:15 98 02/10/22 00:15 106 H 02/10/22 00:15 113 H 132/62 02/10/22 00:10 110 H 97 02/10/22 00:07 111 H 94 02/10/22 00:05 106 H 126/61 98 02/10/22 00:00 105 H 98 02/09/22 23:55 98 02/09/22 23:55 112 H 02/09/22 23:55 106 H 122/58 L 02/09/22 23:50 112 H 98 02/09/22 23:45 110 H 124/61 99 02/09/22 23:40 113 H 98 02/09/22 23:35 122 H 154/69 H 100 02/09/22 23:30 133 H 100 02/09/22 23:25 124 H 111/70 99 02/09/22 23:20 109 H 100 02/09/22 23:15 100 02/09/22 23:15 105 H 02/09/22 23:15 103 H 136/70 02/09/22 22:09 110 H 111/58 L 02/09/22 22:08 112 H 100 02/09/22 22:03 100 H 100 02/09/22 22:01 123 H 106/59 L 02/09/22 21:58 102 H 100 02/09/22 21:53 109 H 100 02/09/22 21:48 105 H 100 02/09/22 21:46 103 H 109/62 02/09/22 21:44 107 H 97/56 L 02/09/22 21:43 106 H 100 02/09/22 21:38 103 H 100 02/09/22 21:33 106 H 100 02/09/22 21:31 105 H 107/55 L 02/09/22 21:28 92 H 99 02/09/22 21:23 92 H 100 02/09/22 21:18 100 H 100 02/09/22 21:16 95 H 98/54 L 02/09/22 21:13 95 H 99 02/09/22 21:08 95 H 100 02/09/22 21:03 92 H 100 02/09/22 21:01 105 H 102/50 L 02/09/22 20:58 93 H 100 02/09/22 20:53 97 H 100 02/09/22 20:48 101 H 100 02/09/22 20:46 92 H 96/54 L 02/09/22 20:43 91 H 100 02/09/22 20:38 92 H 100 02/09/22 20:24 18 02/09/22 20:24 18 02/09/22 20:33 95 H 100 02/09/22 20:31 102 H 101/50 L 02/09/22 20:28 93 H 100 02/09/22 20:23 89 100 02/09/22 20:18 93 H 100 02/09/22 20:16 100 H 104/55 L 02/09/22 20:13 102 H 100 02/09/22 20:08 99 H 100 02/09/22 20:03 95 H 100 02/09/22 20:01 95 H 112/62 02/09/22 19:58 96 H 100 02/09/22 19:53 90 100 02/09/22 19:48 96 H 100 02/09/22 19:47 100 H 107/64 02/09/22 19:43 88 100 02/09/22 19:38 95 H 100 02/09/22 19:33 96 H 100 02/09/22 19:31 103 H 105/64 02/09/22 19:29 100 H 94 02/09/22 19:28 115 H 98 02/09/22 19:23 114 H 100 02/09/22 19:18 100 H 100 02/09/22 19:16 108 H 107/64 02/09/22 19:13 93 H 100 02/09/22 19:11 111 H 85 L 02/09/22 19:08 101 H 100 02/09/22 19:03 100 02/09/22 19:03 98 H 02/09/22 19:03 96 H 106/55 L 02/09/22 18:58 96 H 100 02/09/22 18:53 96 H 100 02/09/22 18:48 95 H 100/56 L 100 02/09/22 18:42 20 02/09/22 18:42 36.7 C 20 02/09/22 18:43 97 H 100 02/09/22 18:38 87 100 02/09/22 18:33 93 H 100 02/09/22 18:32 97 H 101/50 L 02/09/22 18:28 98 H 100 02/09/22 18:23 94 H 100 02/09/22 18:18 103 H 100 02/09/22 18:13 93 H 100 02/09/22 18:08 96 H 100 02/09/22 18:03 105 H 100 02/09/22 18:02 105 H 117/69 02/09/22 17:58 98 H 100 02/09/22 17:53 99 H 100 02/09/22 17:48 105 H 99 02/09/22 17:46 100 H 99/63 L 02/09/22 17:43 97 H 100 02/09/22 17:38 105 H 100 02/09/22 17:33 96 H 100 02/09/22 17:32 99 H 109/68 02/09/22 17:28 95 H 100 02/09/22 17:23 97 H 100 02/09/22 17:18 121 H 100 02/09/22 17:16 103 H 115/69 02/09/22 17:13 99 H 100 02/09/22 17:08 95 H 100 02/09/22 17:03 117 H 100 02/09/22 17:02 116 H 124/80 02/09/22 16:58 114 H 100 02/09/22 16:53 95 H 100 02/09/22 16:48 97 H 100 02/09/22 16:47 91 H 102/58 L 02/09/22 16:43 101 H 100 02/09/22 16:38 95 H 100 02/09/22 16:33 91 H 100 02/09/22 16:31 89 102/58 L 02/09/22 16:28 89 100 02/09/22 16:23 86 100 02/09/22 16:18 92 H 100 02/09/22 16:16 93 H 97/52 L 02/09/22 16:13 87 100 02/09/22 16:08 98 H 100 02/09/22 16:03 97 H 100 02/09/22 16:02 99 H 112/68 02/09/22 16:00 101 H 92 02/09/22 15:58 94 H 99 02/09/22 15:53 99 H 100 02/09/22 15:48 93 H 100 02/09/22 15:46 88 99/56 L 02/09/22 15:43 91 H 100 02/09/22 15:38 89 100 02/09/22 15:33 100 02/09/22 15:33 84 02/09/22 15:33 95 H 112/59 L 02/09/22 15:28 93 H 100 02/09/22 15:24 86 93 02/09/22 15:23 95 H 100 02/09/22 15:18 94 H 100 02/09/22 15:16 103 H 117/55 L 02/09/22 15:13 101 H 100 02/09/22 15:08 122 H 99 02/09/22 15:03 90 100 02/09/22 15:01 96 H 103/53 L 02/09/22 14:58 96 H 100 02/09/22 14:53 93 H 100 02/09/22 14:48 89 100 02/09/22 14:47 88 105/52 L 02/09/22 14:43 94 H 100 02/09/22 14:38 95 H 100 02/09/22 14:33 100 02/09/22 14:33 88 02/09/22 14:33 90 106/55 L 02/09/22 14:28 92 H 100 02/09/22 14:23 89 100 02/09/22 14:18 95 H 100 02/09/22 14:17 102 H 106/54 L 02/09/22 14:13 92 H 100 02/09/22 14:08 82 100 02/09/22 14:03 18 02/09/22 14:03 36.5 C 18 02/09/22 14:03 100 02/09/22 14:03 95 H 02/09/22 14:03 91 H 98/57 L 02/09/22 13:58 91 H 100 02/09/22 13:53 89 100 02/09/22 13:48 93 H 100 02/09/22 13:46 96 H 102/56 L 02/09/22 13:43 95 H 100 02/09/22 13:38 103 H 100 02/09/22 13:33 103 H 100 02/09/22 13:32 101 H 113/67 02/09/22 13:30 103 H 90 02/09/22 13:28 100 H 100 02/09/22 13:23 102 H 100 02/09/22 13:18 98 H 100 02/09/22 13:16 93 H 103/59 L 02/09/22 13:13 95 H 100 02/09/22 13:08 100 H 100 02/09/22 13:03 86 100 02/09/22 13:01 102 H 02/09/22 13:01 103 H 101/60 94 02/09/22 12:58 99 H 100 02/09/22 12:53 90 100 02/09/22 12:49 99 H 93 02/09/22 12:48 91 H 95 02/09/22 12:43 99 H 100 02/09/22 12:38 98 H 100 02/09/22 12:33 90 100 02/09/22 12:31 84 99/54 L 02/09/22 12:28 98 H 100 02/09/22 12:23 92 H 100 02/09/22 12:18 100 02/09/22 12:18 86 02/09/22 12:18 97 H 99/58 L 02/09/22 12:13 105 H 100 02/09/22 12:08 97 H 100 02/09/22 12:03 37.0 C 99 H 16 100 02/09/22 12:02 96 H 98/53 L 02/09/22 11:58 97 H 100 02/09/22 11:53 98 H 100 02/09/22 11:48 100 02/09/22 11:48 92 H 02/09/22 11:48 85 97/59 L 02/09/22 11:43 91 H 100 02/09/22 11:38 99 H 100 02/09/22 11:33 101 H 100 02/09/22 11:31 89 105/60 02/09/22 11:28 93 H 99 02/09/22 11:23 105 H 100 02/09/22 11:18 81 100 02/09/22 11:17 94 H 109/66 02/09/22 11:13 94 H 100 02/09/22 11:08 94 H 100 02/09/22 11:03 81 100 02/09/22 11:02 90 111/60 02/09/22 10:58 95 H 100 02/09/22 10:53 96 H 98 02/09/22 10:48 97 H 100 02/09/22 10:47 101 H 91/53 L 02/09/22 10:43 92 H 100 02/09/22 10:38 88 100 02/09/22 10:33 84 99 02/09/22 10:31 78 87/49 L 02/09/22 10:28 83 99 11/30/22 10:23 87 98 02/09/22 10:18 83 100 02/09/22 10:17 82 95/53 L 02/09/22 10:13 82 100 02/09/22 10:08 86 100 02/09/22 10:03 93 H 100 02/09/22 10:01 87 101/54 L 02/09/22 09:58 89 100 02/09/22 09:53 91 H 100 02/09/22 09:48 88 100 02/09/22 09:47 87 86/53 L 02/09/22 09:43 88 100 02/09/22 09:38 85 100 02/09/22 09:33 103 H 100 02/09/22 09:31 37.0 C 125 H 17 113/65 02/09/22 09:28 88 100 02/09/22 09:23 90 100 02/09/22 09:18 100 02/09/22 09:18 86 02/09/22 09:18 93 H 111/63 02/09/22 09:13 95 H 100 02/09/22 09:08 90 100 02/09/22 09:03 84 100 02/09/22 09:02 95 H 119/73 02/09/22 08:58 86 100 02/09/22 08:57 82 105/65 02/09/22 08:53 114 H 100 02/09/22 08:48 112 H 100 02/09/22 08:47 101 H 109/68 02/09/22 08:43 102 H 100 02/09/22 08:38 95 H 100 02/09/22 08:33 109 H 100 02/09/22 08:32 103 H 117/75 02/09/22 08:28 96 H 100 02/09/22 08:23 92 H 100 02/09/22 08:18 100 02/09/22 08:18 106 H 02/09/22 08:18 100 H 117/57 L 02/09/22 08:13 107 H 100 02/09/22 08:08 95 H 100 02/09/22 08:03 95 H 100 02/09/22 08:02 88 110/68 02/09/22 07:58 90 100 02/09/22 07:53 103 H 100 02/09/22 07:48 116 H 100 02/09/22 07:45 106 H 98/55 L 02/09/22 07:43 99 H 100 02/09/22 07:40 100 H 97/52 L 02/09/22 07:38 91 H 100 02/09/22 07:36 88 95/54 L 02/09/22 07:33 87 100 02/09/22 07:31 95 H 98/56 L 02/09/22 07:28 97 H 100 02/09/22 07:26 90 90 02/09/22 07:25 104 H 91/50 L 02/09/22 07:23 99 H 100 02/09/22 07:21 105 H 101/53 L 02/09/22 07:18 95 H 100 02/09/22 07:15 107 H 100/57 L 02/09/22 07:13 97 H 93 02/09/22 07:11 94 H 108/57 L 02/09/22 07:08 113 H 100 02/09/22 07:00 18 02/09/22 07:00 18 02/09/22 07:03 98 H 112/63 100 02/09/22 06:58 107 H 100 02/09/22 06:53 84 100 02/09/22 06:48 80 100 02/09/22 06:47 80 95/52 L 02/09/22 06:43 81 100 02/09/22 06:38 85 100 02/09/22 06:33 100 02/09/22 06:33 88 02/09/22 06:33 91 H 93/54 L 02/09/22 06:30 20 02/09/22 06:30 20 02/09/22 06:28 98 H 100 02/09/22 06:23 95 H 100 02/09/22 06:18 102 H 100 02/09/22 06:17 100 H 104/65 02/09/22 06:13 98 H 100 02/09/22 06:08 91 H 100 02/09/22 06:00 20 02/09/22 06:00 20 02/09/22 06:03 96 H 100 02/09/22 06:02 92 H 111/68 02/09/22 05:58 90 100 02/09/22 05:53 100 H 100 02/09/22 05:30 20 02/09/22 05:30 20 02/09/22 05:48 97 H 100 02/09/22 05:43 103 H 100 02/09/22 05:38 92 H 100 02/09/22 05:33 108 H 100 02/09/22 05:28 87 100 02/09/22 05:23 105 H 100 02/09/22 05:18 99 H 100 02/09/22 05:17 96 H 103/68 02/09/22 05:13 91 H 99 02/09/22 05:07 36.7 C 02/09/22 05:08 84 100 02/09/22 05:03 99 02/09/22 05:03 88 02/09/22 05:03 85 103/65 02/09/22 05:00 16 02/09/22 05:00 16 02/09/22 04:58 91 H 99 02/09/22 04:53 89 98 02/09/22 04:48 89 98 02/09/22 04:47 87 109/62 02/09/22 04:43 90 99 02/09/22 04:38 89 98 02/09/22 04:33 93 H 99 02/09/22 04:32 90 102/60 02/09/22 04:30 16 02/09/22 04:30 16 02/09/22 04:28 85 98 02/09/22 04:23 80 99 02/09/22 04:18 92 H 97 02/09/22 04:17 78 101/60 02/09/22 04:13 91 H 97 02/09/22 04:08 80 97 02/09/22 04:03 85 100/60 100 02/09/22 03:58 86 99 02/09/22 03:53 85 99 02/09/22 03:48 99 02/09/22 03:48 84 02/09/22 03:48 85 111/63 02/09/22 03:43 93 H 99 02/09/22 03:38 93 H 99 02/09/22 03:26 18 02/09/22 03:26 36.6 C 18 02/09/22 03:33 97 H 114/65 100 02/09/22 03:28 106 H 100 02/09/22 03:23 105 H 100 02/09/22 03:00 16 02/09/22 03:00 16 02/09/22 03:18 113 H 100 02/09/22 03:17 106 H 88/54 L 02/09/22 03:13 106 H 100 02/09/22 03:08 82 100 02/09/22 03:03 87 100 02/09/22 03:02 82 90/52 L 02/09/22 02:58 82 99 02/09/22 02:53 80 100 02/09/22 02:48 99 02/09/22 02:48 80 02/09/22 02:48 76 86/51 L O2 Del Method 02/10/22 02:30 02/10/22 02:30 Room Air 02/10/22 01:30 Room Air 02/10/22 01:30 02/10/22 00:45 02/10/22 00:05 02/09/22 23:55 02/09/22 23:55 02/09/22 23:45 02/09/22 23:35 02/09/22 23:25 02/09/22 23:15 02/09/22 19:05 02/10/22 01:25 02/10/22 01:23 02/10/22 01:20 02/10/22 01:15 02/10/22 01:15 02/10/22 01:15 02/10/22 01:10 02/10/22 01:05 02/10/22 01:00 02/10/22 00:55 02/10/22 00:55 02/10/22 00:55 02/10/22 00:50 02/10/22 00:45 02/10/22 00:45 02/10/22 00:45 02/10/22 00:40 02/10/22 00:35 02/10/22 00:30 02/10/22 00:25 02/10/22 00:25 02/10/22 00:25 02/10/22 00:20 02/10/22 00:15 02/10/22 00:15 02/10/22 00:15 02/10/22 00:10 02/10/22 00:07 02/10/22 00:05 02/10/22 00:00 02/09/22 23:55 02/09/22 23:55 02/09/22 23:55 02/09/22 23:50 02/09/22 23:45 02/09/22 23:40 02/09/22 23:35 02/09/22 23:30 02/09/22 23:25 02/09/22 23:20 02/09/22 23:15 02/09/22 23:15 02/09/22 23:15 02/09/22 22:09 02/09/22 22:08 02/09/22 22:03 02/09/22 22:01 02/09/22 21:58 02/09/22 21:53 02/09/22 21:48 02/09/22 21:46 02/09/22 21:44 02/09/22 21:43 02/09/22 21:38 02/09/22 21:33 02/09/22 21:31 02/09/22 21:28 02/09/22 21:23 02/09/22 21:18 02/09/22 21:16 02/09/22 21:13 02/09/22 21:08 02/09/22 21:03 02/09/22 21:01 02/09/22 20:58 02/09/22 20:53 02/09/22 20:48 02/09/22 20:46 02/09/22 20:43 02/09/22 20:38 02/09/22 20:24 02/09/22 20:24 02/09/22 20:33 02/09/22 20:31 02/09/22 20:28 02/09/22 20:23 02/09/22 20:18 02/09/22 20:16 02/09/22 20:13 02/09/22 20:08 02/09/22 20:03 02/09/22 20:01 02/09/22 19:58 02/09/22 19:53 02/09/22 19:48 02/09/22 19:47 02/09/22 19:43 02/09/22 19:38 02/09/22 19:33 02/09/22 19:31 02/09/22 19:29 02/09/22 19:28 02/09/22 19:23 02/09/22 19:18 02/09/22 19:16 02/09/22 19:13 02/09/22 19:11 02/09/22 19:08 02/09/22 19:03 02/09/22 19:03 02/09/22 19:03 02/09/22 18:58 02/09/22 18:53 02/09/22 18:48 02/09/22 18:42 02/09/22 18:42 02/09/22 18:43 02/09/22 18:38 02/09/22 18:33 02/09/22 18:32 02/09/22 18:28 02/09/22 18:23 02/09/22 18:18 02/09/22 18:13 02/09/22 18:08 02/09/22 18:03 02/09/22 18:02 02/09/22 17:58 02/09/22 17:53 02/09/22 17:48 02/09/22 17:46 02/09/22 17:43 02/09/22 17:38 02/09/22 17:33 02/09/22 17:32 02/09/22 17:28 02/09/22 17:23 02/09/22 17:18 02/09/22 17:16 02/09/22 17:13 02/09/22 17:08 02/09/22 17:03 02/09/22 17:02 02/09/22 16:58 02/09/22 16:53 02/09/22 16:48 02/09/22 16:47 02/09/22 16:43 02/09/22 16:38 02/09/22 16:33 02/09/22 16:31 02/09/22 16:28 02/09/22 16:23 02/09/22 16:18 02/09/22 16:16 02/09/22 16:13 02/09/22 16:08 02/09/22 16:03 02/09/22 16:02 02/09/22 16:00 02/09/22 15:58 02/09/22 15:53 02/09/22 15:48 02/09/22 15:46 02/09/22 15:43 02/09/22 15:38 02/09/22 15:33 02/09/22 15:33 02/09/22 15:33 02/09/22 15:28 02/09/22 15:24 02/09/22 15:23 02/09/22 15:18 02/09/22 15:16 02/09/22 15:13 02/09/22 15:08 02/09/22 15:03 02/09/22 15:01 02/09/22 14:58 02/09/22 14:53 02/09/22 14:48 02/09/22 14:47 02/09/22 14:43 02/09/22 14:38 02/09/22 14:33 02/09/22 14:33 02/09/22 14:33 02/09/22 14:28 02/09/22 14:23 02/09/22 14:18 02/09/22 14:17 02/09/22 14:13 02/09/22 14:08 02/09/22 14:03 02/09/22 14:03 02/09/22 14:03 02/09/22 14:03 02/09/22 14:03 02/09/22 13:58 02/09/22 13:53 02/09/22 13:48 02/09/22 13:46 02/09/22 13:43 02/09/22 13:38 02/09/22 13:33 02/09/22 13:32 02/09/22 13:30 02/09/22 13:28 02/09/22 13:23 02/09/22 13:18 02/09/22 13:16 02/09/22 13:13 02/09/22 13:08 02/09/22 13:03 02/09/22 13:01 02/09/22 13:01 02/09/22 12:58 02/09/22 12:53 02/09/22 12:49 02/09/22 12:48 02/09/22 12:43 02/09/22 12:38 02/09/22 12:33 02/09/22 12:31 02/09/22 12:28 02/09/22 12:23 02/09/22 12:18 02/09/22 12:18 02/09/22 12:18 02/09/22 12:13 02/09/22 12:08 02/09/22 12:03 02/09/22 12:02 02/09/22 11:58 02/09/22 11:53 02/09/22 11:48 02/09/22 11:48 02/09/22 11:48 02/09/22 11:43 02/09/22 11:38 02/09/22 11:33 02/09/22 11:31 02/09/22 11:28 02/09/22 11:23 02/09/22 11:18 02/09/22 11:17 02/09/22 11:13 02/09/22 11:08 02/09/22 11:03 02/09/22 11:02 02/09/22 10:58 02/09/22 10:53 02/09/22 10:48 02/09/22 10:47 02/09/22 10:43 02/09/22 10:38 02/09/22 10:33 02/09/22 10:31 02/09/22 10:28 02/09/22 10:23 02/09/22 10:18 02/09/22 10:17 02/09/22 10:13 02/09/22 10:08 02/09/22 10:03 02/09/22 10:01 02/09/22 09:58 02/09/22 09:53 02/09/22 09:48 02/09/22 09:47 02/09/22 09:43 02/09/22 09:38 02/09/22 09:33 02/09/22 09:31 02/09/22 09:28 02/09/22 09:23 02/09/22 09:18 02/09/22 09:18 02/09/22 09:18 02/09/22 09:13 02/09/22 09:08 02/09/22 09:03 02/09/22 09:02 02/09/22 08:58 02/09/22 08:57 02/09/22 08:53 02/09/22 08:48 02/09/22 08:47 02/09/22 08:43 02/09/22 08:38 02/09/22 08:33 02/09/22 08:32 02/09/22 08:28 02/09/22 08:23 02/09/22 08:18 02/09/22 08:18 02/09/22 08:18 02/09/22 08:13 02/09/22 08:08 02/09/22 08:03 02/09/22 08:02 02/09/22 07:58 02/09/22 07:53 02/09/22 07:48 02/09/22 07:45 02/09/22 07:43 02/09/22 07:40 02/09/22 07:38 02/09/22 07:36 02/09/22 07:33 02/09/22 07:31 02/09/22 07:28 02/09/22 07:26 02/09/22 07:25 02/09/22 07:23 02/09/22 07:21 02/09/22 07:18 02/09/22 07:15 02/09/22 07:13 02/09/22 07:11 02/09/22 07:08 02/09/22 07:00 02/09/22 07:00 02/09/22 07:03 02/09/22 06:58 02/09/22 06:53 02/09/22 06:48 02/09/22 06:47 02/09/22 06:43 02/09/22 06:38 02/09/22 06:33 02/09/22 06:33 02/09/22 06:33 02/09/22 06:30 02/09/22 06:30 02/09/22 06:28 02/09/22 06:23 02/09/22 06:18 02/09/22 06:17 02/09/22 06:13 02/09/22 06:08 02/09/22 06:00 02/09/22 06:00 02/09/22 06:03 02/09/22 06:02 02/09/22 05:58 02/09/22 05:53 02/09/22 05:30 02/09/22 05:30 02/09/22 05:48 02/09/22 05:43 02/09/22 05:38 02/09/22 05:33 02/09/22 05:28 02/09/22 05:23 02/09/22 05:18 02/09/22 05:17 02/09/22 05:13 02/09/22 05:07 02/09/22 05:08 02/09/22 05:03 02/09/22 05:03 02/09/22 05:03 02/09/22 05:00 02/09/22 05:00 02/09/22 04:58 02/09/22 04:53 02/09/22 04:48 02/09/22 04:47 02/09/22 04:43 02/09/22 04:38 02/09/22 04:33 02/09/22 04:32 02/09/22 04:30 02/09/22 04:30 02/09/22 04:28 02/09/22 04:23 02/09/22 04:18 02/09/22 04:17 02/09/22 04:13 02/09/22 04:08 02/09/22 04:03 02/09/22 03:58 02/09/22 03:53 02/09/22 03:48 02/09/22 03:48 02/09/22 03:48 02/09/22 03:43 02/09/22 03:38 02/09/22 03:26 02/09/22 03:26 02/09/22 03:33 02/09/22 03:28 02/09/22 03:23 02/09/22 03:00 02/09/22 03:00 02/09/22 03:18 02/09/22 03:17 02/09/22 03:13 02/09/22 03:08 02/09/22 03:03 02/09/22 03:02 02/09/22 02:58 02/09/22 02:53 02/09/22 02:48 02/09/22 02:48 02/09/22 02:48 Pain Intensity Bilateral Abdomen: Pain Intensity: 4 Transfer of Care Handoff Completed per policy Notes Mental Status: alert / awake / arousable and participated in evaluation Nausea / Vomiting: adequately controlled Pain: adequately controlled Airway Patency, RR, SpO2: stable & adequate BP & HR: stable & adequate Hydration State: stable & adequate Neuraxial Anesthesia: was administered and sensory block is resolving Anesthetic Complications: no major complications apparent and Pt Satisfied with anesthetic care
--- NOTE | 2022-02-10 02:47 | Anesthesia Procedure Note ---
Date of Service February 10, 2022 Anesthesia Post Epidural Note Vital Signs Vital Signs: Temp Pulse Resp BP Pulse Ox O2 Del Method 36.6 C 112 H 18 113/74 100 02/10/22 02:30 02/10/22 02:30 02/10/22 02:30 02/10/22 02:30 02/10/22 02:30 02/10/22 02:30 Pain Intensity Bilateral Abdomen: Pain Intensity: 4 Notes Mental Status: alert / awake / arousable Nausea / Vomiting: adequately controlled Pain: adequately controlled Airway Patency, RR, SpO2: stable & adequate BP & HR: stable & adequate Hydration State: stable & adequate Neuraxial Anesthesia: was administered and sensory block is resolving Anesthetic Complications: no major complications apparent and Pt Satisfied with anesthetic care Epidural: Removed without complications and With tip intact
[2022-02-10] MEDS: KETOROLAC 30 MG/ML VIAL IV PRN ×2 (06:25→18:28)
[2022-02-10 06:52] LABS: Basophils # (auto) 0.04 K/uL (0-0.2); Basophils % (auto) 0.2 %; Eosinophils # (auto) 0.02 K/uL (0-0.50); Eosinophils % (auto) 0.1 %; Hematocrit (blood only) 24.8 % (34.1-44.9); Immature Granulocytes # (auto) 0.21 K/uL (0.00-0.02); Immature Granulocytes % (auto) 1.3 %; Lymphocytes # (auto) 1.21 K/uL (1.2-3.4); Lymphocytes % (auto) 7.4 %; Mean Corpuscular Hemoglobin 21.6 pg (25.0-34.0); Mean Corpuscular Hgb Conc 32.3 g/dL (32.0-36.0); Monocytes # (auto) 0.95 K/uL (0.24-0.82); Monocytes % (auto) 5.8 %; Neutrophils # (auto) 13.84 K/uL (1.4-6.5); Neutrophils % (auto) 85.2 %; RDW Coefficient of Variation 15.5 % (11.5-14.5); RDW Standard Deviation 35.9 fL (36.4-46.3); White Blood Count 16.27 K/ul (4.8-10.8)
[2022-02-10 07:20] LABS: Mean Platelet Volume 10.5 fL (9.4-12.3); Platelet Count 276 K/uL (130-400)
[2022-02-10 07:21] LABS: Acanthocytes 1+; Echinocytes 1+; Microcytosis Present; Schistocytes 1+; Tear Drop Cells 1+
[2022-02-10] MEDS: SIMETHICONE 80 MG CHEW PO SCH ×4 (07:58→20:58)
[2022-02-10] MEDS: FERROUS SULFATE 325 MG TAB PO SCH (07:58)
[2022-02-10] MEDS: DOCUSATE SODIUM 100 MG CAP PO SCH ×2 (07:58→20:58)
[2022-02-10] MEDS: PRENATAL VITAMIN 1 TAB PO SCH (07:58)
[2022-02-10] MEDS ORDERED: IRON SUCROSE 200 MG in 0.9 % SODIUM CHLORIDE 100 ML IV ONE (08:30)
[2022-02-10] MEDS ORDERED: NON-FORMULARY MEDICATION (Prenatal 1 TAB) PO SCH (09:00)
[2022-02-10] MEDS ORDERED: IRON PO SCH (09:00)
--- NOTE | 2022-02-10 09:33 | Obstetrical Progress Note ---
Date of Service February 10, 2022 Assessment & Plan Admission and Anticipated Discharge Date Admission Date: February 08, 2022 Subjective Patient is seen and examined Feels well, no complaints other than being tired Pain is under control with meds No CP/ SOB/ Dizziness/ N&V/ VB/ Leg pain Not OOB yet Tolerating clears, had nausea earlier Flatus neg Breast feeding Vital Signs Temp Pulse Pulse Pulse Resp BP BP 02/10/22 07:30 36.5 C 111 H 20 111/72 02/10/22 06:30 20 02/10/22 05:30 16 02/10/22 03:35 02/10/22 04:30 16 02/10/22 03:35 20 02/10/22 03:35 106 H 20 116/76 02/10/22 02:30 18 02/10/22 02:30 36.6 C 112 H 18 113/74 02/10/22 01:30 36.8 C 105 H 16 135/62 02/10/22 01:30 16 02/10/22 00:45 18 02/10/22 00:05 17 02/09/22 23:55 16 02/09/22 23:55 18 02/09/22 23:45 17 02/09/22 23:35 18 02/09/22 23:25 16 02/09/22 23:15 36.5 C 30 H 02/10/22 01:25 103 H 111/55 L 02/10/22 01:23 114 H 135/62 02/10/22 01:20 103 H 02/10/22 01:15 02/10/22 01:15 114 H 02/10/22 01:15 112 H 119/62 02/10/22 01:10 105 H 02/10/22 01:05 121 H 117/62 02/10/22 01:00 112 H 02/10/22 00:55 02/10/22 00:55 95 H 02/10/22 00:55 102 H 119/61 02/10/22 00:50 113 H 02/10/22 00:45 02/10/22 00:45 100 H 02/10/22 00:45 99 H 123/61 02/10/22 00:40 93 H 02/10/22 00:35 91 H 114/56 L 02/10/22 00:30 105 H 02/10/22 00:25 02/10/22 00:25 102 H 02/10/22 00:25 108 H 117/58 L 02/10/22 00:20 116 H 02/10/22 00:15 02/10/22 00:15 106 H 02/10/22 00:15 113 H 132/62 02/10/22 00:10 110 H 02/10/22 00:07 111 H 02/10/22 00:05 106 H 126/61 02/10/22 00:00 105 H 02/09/22 23:55 02/09/22 23:55 112 H 02/09/22 23:55 106 H 122/58 L 02/09/22 23:50 112 H 02/09/22 23:45 110 H 124/61 02/09/22 23:40 113 H 02/09/22 23:35 122 H 154/69 H 02/09/22 23:30 133 H 02/09/22 23:25 124 H 111/70 02/09/22 23:20 109 H 02/09/22 23:15 02/09/22 23:15 105 H 02/09/22 23:15 103 H 136/70 02/09/22 22:09 110 H 111/58 L 02/09/22 22:08 112 H 02/09/22 22:03 100 H 02/09/22 22:01 123 H 106/59 L 02/09/22 21:58 102 H 02/09/22 21:53 109 H 02/09/22 21:48 105 H 02/09/22 21:46 103 H 109/62 02/09/22 21:44 107 H 97/56 L 02/09/22 21:43 106 H 02/09/22 21:38 103 H Pulse Ox O2 Del Method 02/10/22 07:30 94 Room Air 02/10/22 06:30 98 02/10/22 05:30 98 02/10/22 03:35 Room Air 02/10/22 04:30 94 02/10/22 03:35 02/10/22 03:35 99 Room Air 02/10/22 02:30 100 02/10/22 02:30 100 Room Air 02/10/22 01:30 96 Room Air 02/10/22 01:30 96 02/10/22 00:45 02/10/22 00:05 02/09/22 23:55 02/09/22 23:55 02/09/22 23:45 02/09/22 23:35 02/09/22 23:25 02/09/22 23:15 02/10/22 01:25 02/10/22 01:23 02/10/22 01:20 95 02/10/22 01:15 97 02/10/22 01:15 02/10/22 01:15 02/10/22 01:10 97 02/10/22 01:05 97 02/10/22 01:00 97 02/10/22 00:55 96 02/10/22 00:55 02/10/22 00:55 02/10/22 00:50 97 02/10/22 00:45 96 02/10/22 00:45 02/10/22 00:45 02/10/22 00:40 96 02/10/22 00:35 97 02/10/22 00:30 97 02/10/22 00:25 97 02/10/22 00:25 02/10/22 00:25 02/10/22 00:20 97 02/10/22 00:15 98 02/10/22 00:15 02/10/22 00:15 02/10/22 00:10 97 02/10/22 00:07 94 02/10/22 00:05 98 02/10/22 00:00 98 02/09/22 23:55 98 02/09/22 23:55 02/09/22 23:55 02/09/22 23:50 98 02/09/22 23:45 99 02/09/22 23:40 98 02/09/22 23:35 100 02/09/22 23:30 100 02/09/22 23:25 99 02/09/22 23:20 100 02/09/22 23:15 100 02/09/22 23:15 02/09/22 23:15 02/09/22 22:09 02/09/22 22:08 100 02/09/22 22:03 100 02/09/22 22:01 02/09/22 21:58 100 02/09/22 21:53 100 02/09/22 21:48 100 02/09/22 21:46 02/09/22 21:44 02/09/22 21:43 100 02/09/22 21:38 100 Lab Results 02/08/22 02/08/22 02/08/22 Range/Units 09:25 09:25 09:28 WBC 11.36 H (4.8-10.8) K/ul RBC 4.31 (3.93-5.22) M/uL Hgb 9.3 L (12.0-16.0) g/dl Hct 28.5 L (34.1-44.9) % MCV 66.1 L (80.0-100.0) fL MCH 21.6 L (25.0-34.0) pg MCHC 32.6 (32.0-36.0) g/dL RDW Std Deviation 36.0 L (36.4-46.3) fL RDW Coeff of Naika 15.8 H (11.5-14.5) % Plt Count 321 (130-400) K/uL MPV 10.7 (9.4-12.3) fL Immature Gran % (Auto) % Neut % (Auto) % Lymph % (Auto) % [place] % (Auto) % Eos % (Auto) % Baso % (Auto) % Neut # (Auto) (1.4-6.5) K/uL Lymph # (Auto) (1.2-3.4) K/uL [place] # (Auto) (0.24-0.82) K/uL Eos # (Auto) (0-0.50) K/uL Baso # (Auto) (0-0.2) K/uL Immature Gran # (Auto) (0.00-0.02) K/uL Microcytosis Tear Drop Cells Echinocytes Acanthocytes (Spur) Schistocytes Creatinine (0.6-1.2) mg/dl Est Cr Clr Drug Dosing ml/min Est GFR ( Amer) ml/min Est GFR (Non-Af Amer) ml/min SARS-CoV-2, RNA, NAAT NEGATIVE (NEGATIVE) Blood Type O Positive Antibody Screen NEGATIVE Crossmatch See Detail Intake & Output 02/09/22 02/10/22 02/10/22 22:59 06:59 14:59 Intake Total 1228.5 / 3619.051 1208.75 / 3619.051 1103 / 1103 Output Total 350 / 2450 1750 / 2450 Balance 878.5 / 1169.051 -541.25 / 5907.858 3788 / 1103 Intake: IV 1228.5 / 2619.051 208.75 / 2619.051 1103 / 1103 Ampicillin 2,000 mg In Sodium 100 / 100 100 / 100 Chlor 0.9% Ad-Van 100 ml @ 200 mls/hr IV Q6H [facility] Rx#:[id number] Gentamicin Sulfate 350 mg In 108.75 / 108.75 Dextrose 5% 100 ml @ 100 mls/hr IV Q24H [facility] Rx#:[id number] Lactated Ringer's 1,000 ml @ 1045.0 / 2045.0 150 mls/hr IV .Q6H40M PRN Rx#: [id number] Oxytocin 30 units In Lactated 1003 / 1003 Ringer's 1,000 ml @ 125 mls/hr IV .Q8H2M [facility] Rx#:[id number] Oxytocin 30 units In 500 ml @ 0 183.5 / 365.301 UNITS/HR IV .Q0M PRN Rx#: [id number] IV Perioperative 1000 / 1000 Output: Emesis 300 / 300 Urine Amount (Catheter) 350 / 2150 1450 / 2150 Martinez/Indwelling 350 / 2150 1450 / 2150 Other: # Emeses 2 02/09/22 02/10/22 Range/Units 12:17 06:38 WBC 16.27 H (4.8-10.8) K/ul RBC 3.70 L (3.93-5.22) M/uL Hgb 8.0 L (12.0-16.0) g/dl Hct 24.8 L (34.1-44.9) % MCV 67.0 L (80.0-100.0) fL MCH 21.6 L (25.0-34.0) pg MCHC 32.3 (32.0-36.0) g/dL RDW Std Deviation 35.9 L (36.4-46.3) fL RDW Coeff of Nakia 15.5 H (11.5-14.5) % Plt Count 276 (130-400) K/uL MPV 10.5 (9.4-12.3) fL Immature Gran % (Auto) 1.3 % Neut % (Auto) 85.2 % Lymph % (Auto) 7.4 % [place] % (Auto) 5.8 % Eos % (Auto) 0.1 % Baso % (Auto) 0.2 % Neut # (Auto) 13.84 H (1.4-6.5) K/uL Lymph # (Auto) 1.21 (1.2-3.4) K/uL [place] # (Auto) 0.95 H (0.24-0.82) K/uL Eos # (Auto) 0.02 (0-0.50) K/uL Baso # (Auto) 0.04 (0-0.2) K/uL Immature Gran # (Auto) 0.21 H (0.00-0.02) K/uL Microcytosis Present Tear Drop Cells 1+ Echinocytes 1+ Acanthocytes (Spur) 1+ Schistocytes 1+ Creatinine 0.59 L (0.6-1.2) mg/dl Est Cr Clr Drug Dosing 120.8 ml/min Est GFR ( Amer) 133.8 ml/min Est GFR (Non-Af Amer) 115.5 ml/min SARS-CoV-2, RNA, NAAT (NEGATIVE) Blood Type Antibody Screen Crossmatch PE: General: Alert, orientedx3, NAD CVS: S1S2 RRR Lungs: CTAB Abd: soft, NT, ND, BS+, Dressing C/D/I Lochia minimal Ext: NT, no edema, SCD's on AP: 41 yo female s/p Primary Csection after prolonged labor and ROM , pod#1 VSS Afebrile doing well On IV AB for intraamniotic infection Continue to monitor closely Advance per orders Results & Data ([facility]) Vital Signs (Past 12 Hours) Vital Signs Temp Pulse Pulse Pulse Resp BP BP 02/10/22 07:30 36.5 C 111 H 20 111/72 02/10/22 06:30 20 02/10/22 05:30 16 02/10/22 03:35 02/10/22 04:30 16 02/10/22 03:35 20 02/10/22 03:35 106 H 20 116/76 02/10/22 02:30 18 02/10/22 02:30 36.6 C 112 H 18 113/74 02/10/22 01:30 36.8 C 105 H 16 135/62 02/10/22 01:30 16 02/10/22 00:45 18 02/10/22 00:05 17 02/09/22 23:55 16 02/09/22 23:55 18 02/09/22 23:45 17 02/09/22 23:35 18 02/09/22 23:25 16 02/09/22 23:15 36.5 C 30 H 02/10/22 01:25 103 H 111/55 L 02/10/22 01:23 114 H 135/62 02/10/22 01:20 103 H 02/10/22 01:15 02/10/22 01:15 114 H 02/10/22 01:15 112 H 119/62 02/10/22 01:10 105 H 02/10/22 01:05 121 H 117/62 02/10/22 01:00 112 H 02/10/22 00:55 02/10/22 00:55 95 H 02/10/22 00:55 102 H 119/61 02/10/22 00:50 113 H 02/10/22 00:45 02/10/22 00:45 100 H 02/10/22 00:45 99 H 123/61 02/10/22 00:40 93 H 02/10/22 00:35 91 H 114/56 L 02/10/22 00:30 105 H 02/10/22 00:25 02/10/22 00:25 102 H 02/10/22 00:25 108 H 117/58 L 02/10/22 00:20 116 H 02/10/22 00:15 02/10/22 00:15 106 H 02/10/22 00:15 113 H 132/62 02/10/22 00:10 110 H 02/10/22 00:07 111 H 02/10/22 00:05 106 H 126/61 02/10/22 00:00 105 H 02/09/22 23:55 02/09/22 23:55 112 H 02/09/22 23:55 106 H 122/58 L 02/09/22 23:50 112 H 02/09/22 23:45 110 H 124/61 02/09/22 23:40 113 H 02/09/22 23:35 122 H 154/69 H 11/30/22 23:30 133 H 02/09/22 23:25 124 H 111/70 02/09/22 23:20 109 H 02/09/22 23:15 02/09/22 23:15 105 H 02/09/22 23:15 103 H 136/70 02/09/22 22:09 110 H 111/58 L 02/09/22 22:08 112 H 02/09/22 22:03 100 H 02/09/22 22:01 123 H 106/59 L 02/09/22 21:58 102 H 02/09/22 21:53 109 H 02/09/22 21:48 105 H 02/09/22 21:46 103 H 109/62 02/09/22 21:44 107 H 97/56 L 02/09/22 21:43 106 H 02/09/22 21:38 103 H 02/09/22 21:33 106 H Pulse Ox O2 Del Method 02/10/22 07:30 94 Room Air 02/10/22 06:30 98 02/10/22 05:30 98 02/10/22 03:35 Room Air 02/10/22 04:30 94 02/10/22 03:35 02/10/22 03:35 99 Room Air 02/10/22 02:30 100 02/10/22 02:30 100 Room Air 02/10/22 01:30 96 Room Air 02/10/22 01:30 96 02/10/22 00:45 02/10/22 00:05 02/09/22 23:55 02/09/22 23:55 02/09/22 23:45 02/09/22 23:35 02/09/22 23:25 02/09/22 23:15 02/10/22 01:25 02/10/22 01:23 02/10/22 01:20 95 02/10/22 01:15 97 02/10/22 01:15 02/10/22 01:15 02/10/22 01:10 97 02/10/22 01:05 97 02/10/22 01:00 97 02/10/22 00:55 96 02/10/22 00:55 02/10/22 00:55 02/10/22 00:50 97 02/10/22 00:45 96 02/10/22 00:45 02/10/22 00:45 02/10/22 00:40 96 02/10/22 00:35 97 02/10/22 00:30 97 02/10/22 00:25 97 02/10/22 00:25 02/10/22 00:25 02/10/22 00:20 97 02/10/22 00:15 98 02/10/22 00:15 02/10/22 00:15 02/10/22 00:10 97 02/10/22 00:07 94 02/10/22 00:05 98 02/10/22 00:00 98 02/09/22 23:55 98 02/09/22 23:55 02/09/22 23:55 02/09/22 23:50 98 02/09/22 23:45 99 02/09/22 23:40 98 02/09/22 23:35 100 02/09/22 23:30 100 02/09/22 23:25 99 02/09/22 23:20 100 02/09/22 23:15 100 02/09/22 23:15 02/09/22 23:15 02/09/22 22:09 02/09/22 22:08 100 02/09/22 22:03 100 02/09/22 22:01 02/09/22 21:58 100 02/09/22 21:53 100 02/09/22 21:48 100 02/09/22 21:46 02/09/22 21:44 02/09/22 21:43 100 02/09/22 21:38 100 02/09/22 21:33 100
--- NOTE | 2022-02-10 12:04 | Pharmacy Report ---
Pharmacy PK ABX Note - Date of Service February 10, 2022 - Assessment and Plan Assessment 41 year old F receiving IV Gentamicin and Ampicillin for treatment of chorioamnionitis. POD 1 section after prolonged labor and ROM. VSS Afebrile. Day 2 of antimicrobial therapy. Plan Gentamicin * 5mg/kg actual body weight IV Q24H, 350mg IV Q24H - updated body weight to be obtained at 2000 today, dosing to be updated if necessary. * Obtain trough level 30 min prior to 4th dose if therapy exceeds 72 hours. Ampicillin 2000mg IV Q6H Pharmacy will continue to follow and will adjust dose/frequency as necessary. Thank you.
[2022-02-10] MEDS ORDERED: bisacodyL 5 MG TABEC PO SCH (20:00)
[2022-02-11] MEDS ORDERED: bisacodyL 10 MG SUPP PR PRN
[2022-02-11] MEDS: IBUPROFEN 600 MG TAB PO PRN ×5 (00:12→21:18)
[2022-02-11] MEDS: AMPICILLIN 2,000 MG in SODIUM CHLOR 0.9% AD-VAN 100 ML IV SCH ×2 (00:12→06:37)
[2022-02-11] MEDS: oxyCODONE/ACETAMINOPHEN 5mg/325mg TAB PO PRN ×5 (00:13→21:18)
[2022-02-11] MEDS: GENTAMICIN SULFATE 350 MG in DEXTROSE 5% 100 ML IV SCH (02:37)
[2022-02-11 08:26] LABS: Hematocrit (blood only) 21.2 % (34.1-44.9); Hemoglobin 6.9 g/dl (12.0-16.0)
[2022-02-11] MEDS: DOCUSATE SODIUM 100 MG CAP PO SCH ×2 (08:26→19:44)
[2022-02-11] MEDS: PRENATAL VITAMIN 1 TAB PO SCH (08:26)
[2022-02-11] MEDS: SIMETHICONE 80 MG CHEW PO SCH ×4 (08:26→19:44)
[2022-02-11] MEDS: FERROUS SULFATE 325 MG TAB PO SCH (08:26)
--- NOTE | 2022-02-11 09:08 | Obstetrical Progress Note ---
Date of Service February 11, 2022 Assessment & Plan (1) delivery delivered: Plan C/sec #2 chorioamnionitis on antibiotics Anemia Hemoglobin 6.9- Pt is however clinically stable Plan D/C antibiotics after 24 hrs Repeat H/H and IV iron given Subjective Ambulation: ambulating normally Voiding: no voiding problems Passing Gas:: Yes Diet Tolerance:: clear liquids Lochia:: Small Feeding Type:: breast feeding Review of Systems All systems reviewed & are unremarkable except as noted in HPI & below Physical Exam Constitutional WD/WN, vitals as above well developed and well nourished Eyes PERRL, conjunctivae normal, anicteric sclerae ENMT external ear and nose normal, oropharynx normal Neck trachea midline, no thyromegaly Respiratory normal respiratory effort, lungs clear to auscultation Cardiovascular RRR, no murmur, no edema Chest (Breasts) normal inspection/palpation of breasts Gastrointestinal (Abdomen) normal bowel sounds, soft, nontender, no hepatosplenomegaly Musculoskeletal no cyanosis or clubbing, extremities motor strength 5/5 Skin no rashes, warm and dry + incision (Clean,dry and intact) Neurologic patellar DTR's 2+ bilat, sensation intact Psychiatric A+Ox3, euthymic affect Genitourinary normal external appearance Lymphatic no cervical or axillary lymphadenopathy Results & Data ([facility]) Vital Signs (Past 12 Hours) Vital Signs Temp Pulse Resp BP Pulse Ox O2 Del Method 02/11/22 07:20 36.5 C 95 H 14 101/68 95 Room Air 02/11/22 00:10 36.7 C 108 H 18 101/70
[2022-02-11] MEDS ORDERED: IRON SUCROSE 200 MG in 0.9 % SODIUM CHLORIDE 100 ML IV ONE (09:30)
[2022-02-11 13:12] LABS: Hematocrit (blood only) 24.1 % (34.1-44.9); Hemoglobin 7.8 g/dl (12.0-16.0)
[2022-02-12] MEDS: IBUPROFEN 600 MG TAB PO PRN ×3 (04:37→13:00)
[2022-02-12] MEDS: oxyCODONE/ACETAMINOPHEN 5mg/325mg TAB PO PRN ×3 (04:38→13:00)
--- NOTE | 2022-02-12 08:33 | Obstetrical Progress Note ---
Date of Service February 12, 2022 Assessment & Plan (1) delivery delivered: Plan C/sec #3 chorioamnionitis was on antibiotics Anemia Hemoglobin 6.9 now 7.8 after IV iron. Asymptomatic Plan D/C home today f/u in clinic in 5-7 days postop for staple removal Subjective Ambulation: ambulating normally Voiding: no voiding problems Passing Gas:: Yes Diet Tolerance:: regular diet Lochia:: Small Feeding Type:: bottle feeding Current Pain Level(1-10): 2 Swelling in legs and hand, wants to go home today. Denies any dizziness, shortness of breath, chest pain denies any dizziness, chest pain or shortness of breath. Otherwise feeling well Trying to brest feed but having to use formula at this time Physical Exam Constitutional WD/WN, vitals as above Respiratory normal respiratory effort, lungs clear to auscultation Cardiovascular RRR, no murmur, no edema Gastrointestinal (Abdomen) normal bowel sounds, soft, nontender, no hepatosplenomegaly Incision clean, dry, intact with roberto in place palm incision clean, dry, intact, roberto in place, no erythema or signs of infection Results & Data ([facility]) Vital Signs (Past 12 Hours) Vital Signs Temp Pulse Resp BP 02/11/22 23:20 36.3 C L 80 18 98/64 L Laboratory Results H/H 7.8/24.1
[2022-02-12] MEDS: PRENATAL VITAMIN 1 TAB PO SCH (09:31)
[2022-02-12] MEDS: SIMETHICONE 80 MG CHEW PO SCH ×2 (09:31→13:00)
[2022-02-12] MEDS: FERROUS SULFATE 325 MG TAB PO SCH (09:32)
[2022-02-12] MEDS: DOCUSATE SODIUM 100 MG CAP PO SCH (09:32)
--- NOTE | 2022-02-20 13:08 | Discharge Summary (DS) ---
DATE OF ADMISSION: 02/08/2022. DATE OF DISCHARGE: 02/12/2022 REASON FOR ADMISSION AND HOSPITAL COURSE: The patient was a 41-year-old female, para 1-0-1-1, at 39 weeks and 3 days with an induction of labor due to IVF and advanced maternal age. The patient progre ssed to 8.5 cm despite several hours of nonprogress. She required a section for delivery, de livering a live male. Apgars were 8 and 9. weight was 8 pounds 4.4 ounces. Hospital course w as unremarkable. The patient was discharged home in stable condition. Home going instructions revie mon. Regular diet on discharge. CONDITION ON DISCHARGE: Stable. MEDICATIONS: Include Percocet and Motrin. Follow up will be one week for an incision check. Job ID: [id number]
== END 2022-02-12 15:55 | disposition home or self-care (01) | DRG 786 ==
LOC: 4S1 02-08 07:55 → 4E2 02-10 01:57